=== PATIENT | female | born 1995 | race Caucasian/White ===

== ENCOUNTER 2020-06-03 18:38 | Inpatient (IN) ==
--- OUTSIDE RECORDS SUMMARY | 2020-06-03 18:41 | External Medical Summary | Continuity of Care Document ---
:1995 Author Name Freddy Jeter Address Unavailable Unavailable , Care Team Providers Name Role Phone Ervin Turcios PA-C Unavailable [email or web address] Active medical history not documented Allergies and Adverse Reactions Allergy history not documented Medications Medications not documented Procedures Procedures not documented Immunizations Immunizations not documented Plan of Treatment Planned Observations Planned Goals not documented Results No Known Results Results not documented Encounters Appointment; January Turcios PA-C 23-Dec-2009 8:50 Encounter Diagnosis: Problem not documented
[2020-06-03] MEDS ORDERED: OXYTOCIN 30 UNITS/500 ML BAG IV PRN ×2 (19:49→23:25)
[2020-06-03 20:08] LABS: Hematocrit (blood only) 37.7 % (37-47); Hemoglobin 12.8 g/dL (12.0-16.0); Mean Corpuscular Hemoglobin 25.3 pg (25-34); Mean Corpuscular Volume 74.5 fL (80-100); Mean Platelet Volume 11.1 fL (7.4-10.4); Platelet Count 202 K/uL (130-400); RDW Coefficient of Variation 15.3 % (11.5-14.5); RDW Standard Deviation 41.4 fL (36.4-46.3); Red Blood Count 5.06 M/uL (4.2-5.4); White Blood Count 10.88 K/uL (4.8-10.8)
[2020-06-03] MEDS ORDERED: BUPIVACAINE 0.25% 30 ML VIAL ONE (21:30)
[2020-06-03] MEDS ORDERED: SODIUM CHLORIDE 0.9% INJ 10 ML VIAL ONE (21:30)
[2020-06-03] MEDS ORDERED: ePHEDrine sulfate 50 MG/ML AMP ONE (21:30)
[2020-06-03] MEDS ORDERED: fentaNYL citrate 100 MCG/2 ML VIAL ONE (21:31)
[2020-06-03] MEDS ORDERED: fentaNYL 2MCG/ML ROPIVACAINE 1.25MG/ML 100 ML BAG EPI ONE (21:31)
[2020-06-03] MEDS: LACTATED RINGER'S 1,000 ML IV PRN ×2 (21:46→23:08)
--- NOTE | 2020-06-03 21:46 | History & Physical Report ---
Date of Service June 03, 2020 Assessment & Plan (1) Spontaneous rupture of amniotic membranes: 25 yo at 40.3 wks with SROM, regular contractions, in active labor VS Afebrile FHR reassuring GBS neg Desires epidural for pain Plan to monitor, epidural, expectant management given regular ctxs with cervical change Anticipate (2) Active labor at term: Admission and Anticipated Discharge Date Admission Date: June 03, 2020 History of Present Illness Primary Care Provider: James Carrasco MD Patient is a 25 yo at 40.3 ws, started LOF at 1800 and ctxs at 18:10, got closer and more regular for the last 1 hour No VB Nitrazine and Amnisure tests were +/+ +FM's Her has been uncomplicated except, Obesity, h/o Anxiety ( off Buspar) doing well GBS neg COVID 19 neg Allergies Allergy/AdvReac Type Severity Reaction Status Date / Time No Known Allergies Allergy Unverified 06/03/20 18:59 Home Medications Medication Instructions Recorded Confirmed Type vit-ferrous sulfat-FA 1 tab PO DAILY 06/03/20 06/03/20 History [] Patient History Medical History Anxiety Social History Smoking Status: Never smoker Second Hand Exposure: No; Hx Alcohol Use: No Hx Substance Use: No Preferred Language: Maori Communication Ability: Effective Creative Engagement Director Required: No Beliefs That Will Affect Care: None marital status: Current Living Situation: Spouse Other Information That Helps Us Care for You: No Feels Safe at Home: Yes Safety Concerns: Feels Safe At This Time Assistive Devices: Glasses COUNTER CLERK History No h/o STD's, no h/o HSV/ Chlamydia/ GC Review of Systems All systems reviewed & are unremarkable except as noted in HPI & below Physical Exam Constitutional: WD/WN, vitals as above well developed, well nourished and + in distress (with contractions) Genitourinary: normal external appearance OB Exam Abdomen: + vertex Manual OB Exam: + cervical dilation 4 cm, + cervical effacement 80% and + station -1 OB Exam Monitor Tracing: + external uterine monitor used and + category I Results & Data ([facility]) Vital Signs (Past 12 Hours) Vital Signs Temp Pulse Resp BP 06/03/20 19:03 37.0 C 90 18 130/79 06/03/20 18:50 37.0 C 18 06/03/20 18:47 116 H 130/79 Laboratory Results Lab Results 06/03/20 06/03/20 06/03/20 Range/Units 20:00 20:20 20:20 WBC 10.88 H (4.8-10.8) K/uL RBC 5.06 (4.2-5.4) M/uL Hgb 12.8 (12.0-16.0) g/dL Hct 37.7 (37-47) % MCV 74.5 L (80-100) fL MCH 25.3 (25-34) pg MCHC 34.0 (32-36) g/dL RDW Std Deviation 41.4 (36.4-46.3) fL RDW Coeff of Meghann 15.3 H (11.5-14.5) % Plt Count 202 (130-400) K/uL MPV 11.1 H (7.4-10.4) fL COVID-19 Eval [facility] SARS-CoV-2, RNA, NAAT NEGATIVE (NEGATIVE)
--- NOTE | 2020-06-03 22:08 | Anesthesiology Consultation ---
Date of Service June 03, 2020 Assessment & Plan (1) Encounter for pre-operative examination: Chart Review Chart Review: Patient NOT seen in Pre Admission Testing and Acceptable Risk for Labor Epidural Consults Requested none ASA ASA2 Proposed Anesthesia Anesthesia Type: Labor Epidural Risk / Benefits Reviewed With: PT / POA / Parent / Guardian, Accepts Plan and Informed Consent Obtained History Height/Weight Height: 5 ft 5 in Weight: 99.337 kg Allergies Allergy/AdvReac Type Severity Reaction Status Date / Time No Known Allergies Allergy Unverified 06/03/20 18:59 Medications Home Medications Medication Instructions Recorded Confirmed Last Taken vit-ferrous sulfat-FA 1 tab PO DAILY 06/03/20 06/03/20 06/02/20 19:00 [] Active Medications Generic Name Dose Route Start Last Admin Trade Name Freq PRN Reason Stop Dose Admin Lactated Ringer's 1,000 mls @ 150 mls/hr 06/03/20 19:49 06/03/20 21:46 Lr IV 06/05/20 19:48 999 mls/hr .[id number] PRN Administration L&D Protocol Protocol NPO Date Last Intake of Fluids: 06/03/20 Time Last Intake of Fluids: 22:05 Date Last Intake of Solids: 06/03/20 Time Last Intake of Solids: 16:00 Past Medical History Medical History Anxiety Exercise / Class Metabolic Activity II 4-5 Yardwork/Stairs/Walk up hill Past Surgical History Surgical History No pertinent past surgical history Past Anesthesia History No Family Hx of Anesthesia Complications History of PONV No Hx of Motion Sickness Social History Smoking Status: Never smoker Hx Alcohol Use: No Hx Substance Use: No substance use type: does not use Review of Systems Negative for chest pain or shortness of breath. Patient denies history of abnormal bleeding or bleeding disorder. Patient denies active use of anticoagulants other than low dose aspirin. Patient denies numbness, tingling or weakness in lower extremities. Physical Exam Vital Signs Last Vital Signs Temp 36.9 C 06/03/20 21:15 Pulse 91 H 06/03/20 22:02 Resp 18 06/03/20 19:03 BP 130/79 06/03/20 19:03 Pulse Ox 100 06/03/20 22:02 Constitutional not obese (gravid) ENMT Mouth: no TMJ abnormality and oral opening not small Neck normal visual inspection; neck extension not limited Respiratory normal respiratory effort Cardiovascular Rate/Rhythm: regular rate and regular rhythm Neurologic moves all extremities Psychiatric Orientation: alert and oriented x 3 Testing Laboratory Results 06/03/20 20:00
[2020-06-03] MEDS ORDERED: diphenhydrAMINE 50 MG/ML VIAL IV PRN (22:41)
[2020-06-03] MEDS ORDERED: fentaNYL 2MCG/ML ROPIVACAINE 1.25MG/ML 100 ML BAG EPI PRN (22:41)
[2020-06-03] MEDS ORDERED: NALOXONE HCL 1 MG in SODIUM CHLORIDE 0.9% 1000ML 1,000 ML IV PRN (22:41)
[2020-06-03] MEDS ORDERED: NALOXONE HCL 0.4 MG/1 ML VIAL/CARP IV PRN (22:41)
[2020-06-03] MEDS ORDERED: ONDANSETRON INJ 2 MG/ML 2 ML VIAL IV PRN (22:41)
[2020-06-03] MEDS ORDERED: ePHEDrine sulfate 50 MG/ML AMP IV PRN (22:41)
--- NOTE | 2020-06-03 23:25 | Obstetrical Progress Note ---
Date of Service June 03, 2020 Assessment & Plan Admission and Anticipated Discharge Date Admission Date: June 03, 2020 Subjective Patient is reevaluated She has received epidural, comfortable now VSS Afebrile FHR categ I VE; 5/ 80%/ -1, bulging bag, AROM'ed, clear fluid [place] ctxs q 2-5 min, palpated moderate Continue to monitor closely Consider Pitocin if no cervical change in 2 hours Results & Data ([facility]) Vital Signs (Past 12 Hours) Vital Signs Temp Pulse Resp BP Pulse Ox 06/03/20 23:17 109 H 99 06/03/20 23:12 120 H 100 06/03/20 23:10 111 H 119/70 06/03/20 23:07 125 H 100 06/03/20 23:06 126 H 123/66 06/03/20 23:02 129 H 100 06/03/20 23:00 123 H 116/64 06/03/20 22:57 126 H 99 06/03/20 22:55 129 H 104/55 L 06/03/20 22:52 132 H 100 06/03/20 22:49 129 H 110/55 L 06/03/20 22:47 140 H 106/60 100 06/03/20 22:45 125 H 18 108/59 L 06/03/20 22:43 130 H 18 106/56 L 06/03/20 22:42 126 H 100 06/03/20 22:41 111 H 16 104/58 L 06/03/20 22:39 117 H 18 93/52 L 06/03/20 22:37 111 H 18 100/59 L 100 06/03/20 22:35 117 H 116/68 06/03/20 22:33 108 H 20 137/71 06/03/20 22:32 105 H 100 06/03/20 22:30 91 H 18 130/78 06/03/20 22:27 89 100 06/03/20 22:22 86 100 06/03/20 22:17 90 100 06/03/20 22:12 102 H 100 06/03/20 22:07 95 H 100 06/03/20 22:02 91 H 100 06/03/20 21:57 105 H 100 06/03/20 21:52 99 H 100 06/03/20 21:15 36.9 C 06/03/20 19:03 37.0 C 90 18 130/79 06/03/20 18:50 37.0 C 18 06/03/20 18:47 116 H 130/79
[2020-06-04] MEDS ORDERED: LIDOCAINE HCL 1% 20 ML VIAL ONE (03:43)
[2020-06-04] MEDS ORDERED: bisacodyL 10 MG SUPP PR PRN (04:00)
[2020-06-04] MEDS ORDERED: ACETAMINOPHEN 325 MG TAB PO PRN (04:00)
[2020-06-04] MEDS ORDERED: DIPHTHERIA/TETANUS/PERTUSSIS 0.5 ML SYR/VIAL IM ONE (04:00)
[2020-06-04] MEDS ORDERED: BENZOCAINE 20% AER SPR 82.5 GM CAN EXT PRN (04:00)
[2020-06-04] MEDS ORDERED: SUPERCREAM 0.870% 15 GM JAR EXT PRN (04:00)
[2020-06-04] MEDS ORDERED: OXYTOCIN 30 UNITS/500 ML BAG IV PRN (04:00)
[2020-06-04] MEDS ORDERED: HYDROCORTISONE ACETATE 25 MG SUPP PR PRN (04:00)
[2020-06-04] MEDS ORDERED: MEASLES, MUMPS & RUBELLA VIRUS VIAL SQ ONE (04:00)
--- NOTE | 2020-06-04 04:27 | Anesthesia Procedure Note ---
Date of Service June 04, 2020 Anesthesia Post Epidural Note Vital Signs Vital Signs: Temp Pulse Resp BP Pulse Ox 36.7 C 94 H 20 126/70 99 06/04/20 03:00 06/04/20 04:23 06/04/20 03:29 06/04/20 04:23 06/04/20 03:52 Notes Mental Status: alert / awake / arousable and participated in evaluation Nausea / Vomiting: adequately controlled Pain: adequately controlled Airway Patency, RR, SpO2: stable & adequate BP & HR: stable & adequate Hydration State: stable & adequate Neuraxial Anesthesia: was administered and sensory block is resolving Anesthetic Complications: no major complications apparent and Pt Satisfied with anesthetic care Epidural: Removed without complications and With tip intact Notes: Epidural site clean, dry and intact. No signs of edema, erythema or bruising at insertion site. Pt instructed to request anesthesia if she has residual lower extremity numbness or if she develops lower extremity pain or weakness, back pain or headache.
--- NOTE | 2020-06-04 07:42 | Delivery Summary ---
DATE OF OPERATION: 06/04/2020 TIME OF DELIVERY OF BABY: 3:29 a.m. DETAILS OF DELIVERY: The patient was found to be fully dilated and desired to push. She pushed for about 45 minutes and delivered the head and then turtle sign was noted over the perineum. The anterior, which was the right shoulder, was found to be stuck behind symphysis pubis. Nursing team was notified. The patient's bed was lowered all the way down. With Mia maneuver and suprapubic pressure, I was able to go in to the pelvis and deliver the posterior/ left shoulder and arm without difficulty and then anterior shoulder came right after. Baby was completely delivered within less than a aminute. Baby was handed to the mother where mouth and nose were suctioned. Cord was clamped x2 and cut. Baby was handed off to the pediatric team. Baby was vigorously crying and moving. Then cord blood was obtained. Perineum and vagina were checked for lacerations. There was a small second-degree laceration at the posterior fourchette at 6 o'clock on the hymen, which was small, but was second degree. Rectal exam was done. Excellent sphincter tone was noted. Gloves were changed and this was repaired with 2-0 Vicryl in a running locked fashion bringing the vaginal mucosal and muscles together, skin in a subcuticular fashion and then it was hemostatic. The placenta was found to be in the vagina, delivered spontaneously as intact and complete. Uterus was explored, cleared of all clots and debris. Fundus was firm. The vagina and perineum were checked again. There was a small oozing at the hymen at 3 o'clock position. It was repaired with 3-0 Vicryl on an SH needle with [id number] stitches x2 and it was hemostatic. Rest of the vagina was intact and hemostatic. EBL was 100 mL. Mom and baby tolerated the procedure well. Sponge, lap, needle count was correct x3. Baby was a viable female , Apgars 8/9. No complications happened. I was present during whole procedure. I attest to the content of the Intraoperative Record and any orders documented therein. Any exceptions are noted below. RAFAELAD
[2020-06-04] MEDS: PRENATAL VITAMIN 1 TAB PO SCH (08:27)
[2020-06-04] MEDS: FERROUS SULFATE 325 MG TAB PO SCH (08:27)
[2020-06-04] MEDS: DOCUSATE SODIUM 100 MG CAP PO SCH ×2 (08:27→21:00)
[2020-06-04] MEDS: IBUPROFEN 600 MG TAB PO PRN ×2 (12:35→18:20)
[2020-06-05] MEDS: IBUPROFEN 600 MG TAB PO PRN ×2 (00:35→12:29)
[2020-06-05 06:17] LABS: Hemoglobin 11.7 g/dL (12.0-16.0); Mean Corpuscular Hemoglobin 24.9 pg (25-34); Mean Corpuscular Hgb Conc 32.5 g/dL (32-36); Mean Corpuscular Volume 76.6 fL (80-100); Mean Platelet Volume 10.7 fL (7.4-10.4); Platelet Count 173 K/uL (130-400); RDW Coefficient of Variation 15.7 % (11.5-14.5); RDW Standard Deviation 43.4 fL (36.4-46.3); White Blood Count 12.61 K/uL (4.8-10.8)
[2020-06-05] MEDS: PRENATAL VITAMIN 1 TAB PO SCH (08:26)
[2020-06-05] MEDS: FERROUS SULFATE 325 MG TAB PO SCH (08:26)
[2020-06-05] MEDS: DOCUSATE SODIUM 100 MG CAP PO SCH (08:26)
--- NOTE | 2020-06-05 09:06 | Obstetrical Progress Note ---
Date of Service June 05, 2020 Assessment & Plan Admission and Anticipated Discharge Date Admission Date: June 03, 2020 Subjective PPD#1 doing well passing gas tolerating diet oob Physical Exam Constitutional: WD/WN, vitals as above well developed and comfortable fundus firm abdomen soft and non-tender no edema neg Uyen's for d/c today Results & Data ([facility]) Vital Signs (Past 12 Hours) Vital Signs Temp Pulse Resp BP Pulse Ox 06/05/20 08:30 36.6 C 79 18 116/79 06/05/20 04:30 36.6 C 88 17 97/64 L 98 06/04/20 23:15 36.7 C 80 16 103/69 98 Laboratory Results 06/03/20 06/03/20 06/03/20 20:00 20:20 20:20 WBC 10.88 H RBC 5.06 Hgb 12.8 Hct 37.7 MCV 74.5 L MCH 25.3 MCHC 34.0 RDW Std Deviation 41.4 RDW Coeff of Meghann 15.3 H Plt Count 202 MPV 11.1 H Amniotic Protein COVID-19 Eval [facility] SARS-CoV-2, RNA, NAAT NEGATIVE 06/03/20 06/05/20 20:49 05:20 WBC 12.61 H RBC 4.70 Hgb 11.7 L Hct 36.0 L MCV 76.6 L MCH 24.9 L MCHC 32.5 RDW Std Deviation 43.4 RDW Coeff of Meghann 15.7 H Plt Count 173 MPV 10.7 H Amniotic Protein POS COVID-19 Eval Order SARS-CoV-2, RNA, NAAT
[2020-06-05] MEDS ORDERED: bisacodyL 5 MG TABEC PO SCH (20:00)
== END 2020-06-05 13:20 | disposition home or self-care (01) | DRG 807 ==
LOC: OPB 18:38 → 4S1 18:39 → 4N 06-04 06:36 → EDSTATUS 06-04 18:37

== ENCOUNTER 2023-04-16 22:04 | Inpatient (IN) ==
--- OUTSIDE RECORDS SUMMARY | 2023-04-16 22:11 | External Medical Summary | Summary of Care ---
Author Name Unknown Organization [facility] Address [address] [place] [address] Phone [phone] Care Team Providers Care Photo Lab Manager Name Role Phone James Carrasco MD Primary Care Provider Reason for Visit * Reason Comments Return Visit Encounter Details Date Type Department Care Team (Late st Contact Info) Description 02/11/2023 9:00 AM EST Office Visit Gynecology/Obstetric s [facility] [address] [place] [address] Mis Quevedo PA-C [address] [place] [id number] Normal in third trimester*; Obesity in , antepartum; Rubella non-immune status, antepartum Allergies No known active allergiesdocumented as of this encounter (statuses as of 02/11/2023) Medications Medication Sig Dispensed Refills Start Date End Date Status Fexofenadine HCl 180 MG Oral Tablet (Nessa) Take 1 Tablet by mouth daily as needed for Allergies. 30 Tablet 11 07/30/2021 Active Complete Oral Capsule Therapy Pack Take by mouth. 0 Active documented as of this encounter (statuses as of 02/11/2023) Active Problems Problem Noted Date Diagnosed Date Rubella non-immune status, antepartum 09/08/2022 Normal 09/07/2022 Obesity in , antepartum 09/07/2022 Overview: Class 1; normal early GTT BMI 32.0-32.9,adult 08/26/2021 Overview: 193 Anxiety 10/15/2019 Overview: Buspar prn, stopped ADVANCE DIRECTIVE INFORMATION 03/07/2006 Overview: Not applicable (under age of 18) Estimated Date of Delivery Comme nts Yes 04/18/2023 Based on last me nstrual period of 07/12/2022 documented as of this encounter (statuses as of 02/11/2023) Resolved Problems Problem Noted Date Diagnosed Date Resolved Date Rubella non-immune status, antepartum 01/21/2020 06/23/2020 , normal first 11/26/2019 05/0 04/2020 Obesity in , antepartum 10/15/2019 06/23/2020 Overview: BMI: 33.18 kg/m at NOB 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 Acne vulgaris 05/22/2018 documented as of this encounter (statuses as of 02/11/2023) Immunizations Name Administration Dates Next Due COVID-19 mRNA, LNP-s, No Pre serve, 2-Dose Series (Emprivo) 02/24/2021,01/20/2021 COVID-19, LNP-s, No Preserve , Mariano-sucrose, Ages 12+ (Emprivo) 09/15/2021 H1N1 2009 Influenza, IM 12/22/2008 HPV Vaccine, 4-Valent 10/03/2006,05/30/2006,03/24 Hep A - Hepatitis A (ped/ado le, 1-18 Yrs) 03/04/2006,08/23/2005 Meningococcal Conjugate Vacc ine (Menactra/Menveo) 09/20/2013,03/18/2008 PPD 09/20/2018,02/22/2017,07/02/2015 Seasonal Influenza, PF, 6 M & above, IM , (FluLaval or Fluzone) 11/05/2022,01/21/2020,12/19/2018,02/24 Seasonal Influenza, Quadriva lent, No Preserve, IM 11/21/2017 TDAP (age 10 and older)(Boostrix) 01/28/2023,,02/19/2015 TDAP (age 11 and older)(Adacel) 03/04/2006 Varicella Vaccine (Chicken Pox) 03/18/2008 documented as of this encounter Social History Tobacco Use Types Packs/Day Years Used Date Smoking Tobacco: Never Smokeless Tobacco: Never Alcohol Use Standard Drinks/Week Comments No 0 (1 standard drink = 0.6 oz pur e alcohol) PHQ-2 Answer Date Recorded PHQ-2 Score 0 05/10/2018 Hunger Vital Sign Answer Date Recorded Within the past 12 months, y ou worried that your food would run out before you got the money to buy more. Never true 09/08/19 23 Within the past 12 months, t he food you bought just didn't last and you didn't have money to get more. Never true 09/07/2022 Kerrick Depression Scale Answer Date Recorded Kerrick Depression Scale Total 0 01/28/2023 The thought of harming myself has occurred to me . Never 01/28/2023 Estimated Date of Delivery Comme nts Yes 04/18/2023 Based on last me nstrual period of 07/12/2022 Sex and Gender Information Value Date Recorded Sex Assigned at Female 09/07/2022 9:26 AM EDT Gender Identity Female 09/07/2022 9:26 AM EDT Sexual Orientation Straight 09/07/2022 9: 26 AM EDT Job Start Date Occupation Industry Not on file Not on file Not on file documented as of this encounter Last Filed Vital Signs Vital Sign Reading Time Taken Comments Blood Pressure 112/74 02/11/2023 9:01 AM EST Pulse - - Temperature - - Respiratory Rate - - Oxygen Saturation - - Inhaled Oxygen Concentration - - Weight 92.1 kg (203 lb) 02/11/2023 9:01 AM EST Height 165.1 cm (5' 5") 02/11/2023 9:01 AM EST Body Mass Index 33.78 02/11/2023 9:01 AM EST documented in this encounter Progress Notes * Mis Quevedo PA-C - 02/11/2023 9:21 AM EST 30w4d Doing well, without complaints. Denies bleeding, leaking, contractions. Pos FM. Passed glucola. RTC in 2 weeks Mis Quevedo PA-C documented in this encounter Nursing Notes * Yajaira Tirado LPN - 02/11/2023 9:09 AM EST 30w4d Denies concerns. documented in this encounter Plan of Treatment Upcoming Encounters Date Type Department Care Team (Late st Contact Info) Description 02/25/2023 4:00 PM EST Office Visit Gynecology/Obstetrics [facility] [place] [address] [place], [place] [address] Jasmin Montiel, [address] [address] 03/11/2023 4:30 PM EST Office Visit Gynecology/Obstetrics [facility] [place] [address] [place] [address] Mis Quevedo PA-C [address] [place] [address] 03/25/2023 4:30 PM EST Office Visit Gynecology/Obstetrics [facility] [address] [place] [address] Mis Quevedo PA-C [address] [place] [address] 04/01/2023 4:30 PM EST Office Visit Gynecology/Obst[facility]s [facility] [address] [place] [address] Mis Quevedo PA-C [address] [place] [address] 04/05/2023 3:00 PM EST Office Visit Gynecology/Obstetrics [facility] [address] [place] [address] Clinton Galo MD [address] [place] [address] 04/13/2023 3:15 PM EST Office Visit Gynecology/Obstetrics [facility] [address] [place] [address] Tameka Odom CRNP [address] [place] [address] 04/18/2023 7:45 AM EST Office Visit Gynecology/Obstetrics [facility] [address] [place] [address] Mis Quevedo PA-C [address] [place] [address] Health Maintenance Due Date Last Done Comments Depression Screening 05/11/2019 05/10/2018 COVID-19 Vaccine ( season) 2022 09/15/2021, 02/24/2021, 01/20/2021 Pap Smear 05/12/2025 05/12/2022, 09/22, 04/29/2017 DTaP,Tdap,and Td Vaccines (10 - Td or Tdap) 01/28/2033 01/28/2023, 03/10/2020, 02/19/2015, Additional history exists Hepatitis B Completed 1995, 01/22, 1995 GARDASIL-HPV IMMUNIZATION SERIES Completed 10/03/2006, 05/30/2006, 04/04/2006 MENINGOCOCCAL (MENACTRA/MENVEO) Completed 09/20/2013, 03/18/2008 Gonorrhea / Chlamydia Screen Discontinued 09/07/2022, 10/15/2019, 09/15/2018, Additional history exists Influenza Vaccine (FLU shot) Completed 11/05/2022, 01/21/2020, 12/19/2018, Additional history exists Pneumococcal Vaccine: Pediatrics (0 to 5 Years) and At-Risk Patients (6 to 64 Years) Aged Out No longer eligible based on patient's age to complete this topic documented as of this encounter Medical Devices Not on filedocumented as of this encounter Visit Diagnoses Diagnosis Normal in third trimester- Primary Obesity in , antepartum Obesity complicating , childbirth, or the puerperium, antepartum condition or complication Rubella non-immune status, antepartum Other specified complication, antepartum documented in this encounter Care Teams Photo Lab Manager Relationship Specialty Start Date End Date James Carrasco MD [address] [place] [address] [place] [address] PCP - General 04/04/00 documented as of this encounter
--- OUTSIDE RECORDS SUMMARY | 2023-04-16 22:11 | External Medical Summary ---
Author Name Unknown Address Unknown Organization K01:[facility] [place] [address] [facility] [id number] Laboratory Report Ordering Provider Test Date Status DEMOND EMANUEL 01/28/2023 08:35:36 Final Observation Date Value Abnormality Reference (Units ) Status Retic, % (auto) 01/28/2023 08:35:36 1.81 0.80-1.90 (%) Final Reticulocytes, Absolute 01/28/2023 08:35:36 84.5 31.3-100.1 (K/uL) Final Reticulocyte fraction, immature 01/28/2023 08:35:36 23.1 Above high normal 2.5-20.6 (%) Final Reticulocyte HGB 01/28/2023 08:35:36 27.8 Below low normal 29.7-37.4 (pg) Final Performing Location [facility] [place] [address] [facility] [id number]
--- OUTSIDE RECORDS SUMMARY | 2023-04-16 22:11 | External Medical Summary | Summary of Care ---
Author Name Unknown Organization [facility] Address [address] [place] [address] Phone [phone] Care Team Providers Care Fertilizer Mixer Name Role Phone James Carrasco MD Primary Care Provider Reason for Visit * Reason Comments Return Visit Encounter Details Date Type Department Care Team (Late st Contact Info) Description 04/01/2023 4:30 PM EST Office Visit Gynecology/Obstetric s [facility] [address] [place] [address] Mis Quevedo PA-C [address] [place] [address] Normal in third trimester*; Obesity in , antepartum; Rubella non-immune status, antepartum Allergies No known active allergiesdocumented as of this encounter (statuses as of 04/01/2023) Medications Medication Sig Dispensed Refills Start Date End Date Status Fexofenadine HCl 180 MG Oral Tablet (Nessa) Take 1 Tablet by mouth daily as needed for Allergies. 30 Tablet 11 07/30/2021 Active Complete Oral Capsule Therapy Pack Take by mouth. 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 Acne vulgaris 05/22/2018 documented as of this encounter (statuses as of 04/01/2023) Immunizations Name Administration Dates Next Due COVID-19 mRNA, LNP-s, No Pre serve, 2-Dose Series (Real Time Tomography) 02/24/2021,01/20/2021 COVID-19, LNP-s, No Preserve , Mariano-sucrose, Ages 12+ (Real Time Tomography) 09/15/2021 H1N1 2009 Influenza, IM 12/22/2008 HPV Vaccine, 4-Valent 10/03/2006,05/30/2006,03/24 Hep A - Hepatitis A (ped/ado le, 1-18 Yrs) 03/04/2006,08/23/2005 Meningococcal Conjugate Vacc ine (Menactra/Menveo) 09/20/2013,03/18/2008 PPD 09/20/2018,02/22/2017,07/02/2015 RSV Vac., Bivalent, Perfusio n F, Pf,0.5 Ml (Abrysvo) 03/11/2023 Seasonal Influenza, PF, 6 M & above, [...] money to get more. Never true 09/07/2022 [place] Depression Scale Answer Date Recorded [place] Depression Scale Total 0 03/25/2023 The thought of harming myself has occurred to me . Never 03/25/2023 Estimated Date of Delivery Comme nts Yes [...] Sign Reading Time Taken Comments Blood Pressure 110/70 04/01/2023 4:15 PM EST Pulse - - Temperature - - Respiratory Rate - - Oxygen Saturation - - Inhaled Oxygen Concentration - - Weight 97.1 kg (214 lb) 04/01/2023 4:15 PM EST Height 165.1 cm (5' 5") 04/01/2023 4:15 PM EST Body Mass Index 35.61 04/01/2023 4:15 PM EST documented in this encounter Progress Notes * Mis Quevedo PA-C - 04/01/2023 4:30 PM EST 37w4d Doing well. Denies LOF, VB. Intermittent contractions, no timing or regularity. Good FM. GBS negative. Wishes to schedule post date IOL. Asking for 04/20/2023 if available. Scheduled and given instructions. RTC in 1 week Mis Quevedo PA-C documented in this encounter Nursing Notes * Yajaira Tirado LPN - 04/01/2023 4:20 PM EST 37w4d Denies concerns documented in this encounter Plan of Treatment Upcoming Encounters Date Type Department Care Team (Late st Contact Info) Description 04/05/2023 3:00 PM EST Office Visit Gynecology/Obstetrics [facility] [address] [place] [address] Clinton Galo MD [address] [place] [address] 04/13/2023 3:15 PM EST Office Visit Gynecology/Obstetrics [facility] [address] [place] [address] Tameka Odom CRNP [address] [place] [address] 04/18/2023 7:45 AM EST Office Visit Gynecology/Obst[facility]s [facility] [address] [place] [address] Mis Quevedo PA-C [address] [place] [address] Health Maintenance Due Date Last Done Comments [...] antepartum documented in this encounter Care Teams Fertilizer Mixer Relationship Specialty Start Date End Date James Carrasco MD [address] [place] [address] [place] [address] PCP - General 04/04/00 documented as of this encounter
--- OUTSIDE RECORDS SUMMARY | 2023-04-16 22:11 | External Medical Summary ---
Author Name Unknown Address Unknown Organization [id number]:[facility] [place] [facility] [address] [place] [address] Laboratory Report Ordering Provider Test Date Status JENAEDEMOND CHOWDHURY 01/28/2023 08:35:36 Final Observation Date Value Abnormality Reference (Units ) Status Creatinine 01/28/2023 08:35:36 0.4 Below low normal 0.5-1.0 (mg/dL) Final Glomerular filtration rate/1.73 sq M.predicted [Volume Rate/Area] in Serum, Plasma or Blood by Creatinine-based formula (CKD-EPI) 01/28/2023 08:35:36 >90 >=60 (mL/min) Final eGFR is calculated based on the CKD-EPI 2020 equation Performing Location [facility] [place] [address] [place] [address]
--- OUTSIDE RECORDS SUMMARY | 2023-04-16 22:11 | External Medical Summary ---
Author Name Unknown Address Unknown Organization [id number]:LAB[facility]ATORY [facility] [place] [address] [place] [address] Laboratory Report Ordering Provider Test Date Status DEMOND EMANUEL 01/28/2023 08:35:36 Final Observation Date Value Abnormality Reference (Units ) Status Glucose [Moles/volume] in Serum or Plasma --1 hour post 50 g glucose PO 01/28/2023 08:35:36 100 70-129 (mg/dL) Final Performing Location [facility]ORY [facility] [place] [address] [place] [address]
--- OUTSIDE RECORDS SUMMARY | 2023-04-16 22:11 | External Medical Summary | Summary of Care ---
Author Name Unknown Organization [facility] Address [address] [place] [address] Phone [phone] Care Team Providers Care Plating Operator Name Role Phone James Carrasco MD Primary Care Provider [phone] Reason for Visit * Reason Onset Date Comments Forms Request 02/11/2023 Encounter Details Date Type Department Care Team (Late st Contact Info) Description 02/11/2023 Telephone Gynecology/Obstetrics [facility] [address] [place] [address] Mis Quevedo PA-C [address] [place] [address] Forms Request Allergies No known active allergiesdocumented as of this encounter (statuses as of 02/17/2023) Medications Medication Sig Dispensed Refills Start Date End Date Status Fexofenadine HCl 180 MG Oral Tablet (Nessa) Take 1 Tablet by mouth daily as needed for Allergies. 30 Tablet 11 07/30/2021 Active Complete Oral Capsule Therapy Pack Take by mouth. 0 Active documented as of this encounter (statuses as of 02/17/2023) Active Problems Problem Noted Date Diagnosed Date Rubella non-immune status, antepartum 09/08/2022 Normal 09/07/2022 Obesity in , antepartum 09/07/2022 Overview: Class 1; normal early GTT BMI 32.0-32.9,adult 08/26/2021 Overview: 193 Anxiety 10/15/2019 Overview: Keven prn, stopped ADVANCE DIRECTIVE INFORMATION 03/07/2006 Overview: Not applicable (under age of 18) Estimated Date of Delivery Comme nts Yes 04/18/2023 Based on last me nstrual period of 07/12/2022 documented as of this encounter (statuses as of 02/17/2023) Resolved Problems Problem Noted Date Diagnosed Date Resolved Date Rubella non-immune status, antepartum 01/21/2020 06/23/2020 , normal first 11/26/2019 0504/2020 Obesity in , antepartum 10/15/2019 06/23/2020 Overview: BMI: 33.18 kg/m at NOB 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 Acne vulgaris 05/22/2018 documented as of this encounter (statuses as of 02/17/2023) Immunizations Name Administration Dates Next Due COVID-19 mRNA, LNP-s, No Pre serve, 2-Dose Series (Pfizer) 02/24/2021,01/20/2021 COVID-19, LNP-s, No Preserve , Mariano-sucrose, Ages 12+ (Pfizer) 09/15/2021 DTP/HIB (Tetramune) 1995,1995,1995 DTaP Dipth/Tet/Acell Pertussis (Infanrix), Peds 12/01/2000,07/20/1996 H1N1 2009 Influenza, IM 12/22/2008 HIB PRP-OMP, 3 dose (Pedvax) 07/20/1996 HPV Vaccine, 4-Valent 10/03/2006,05/30/2006,03/24 Hep A - Hepatitis A (ped/ado le, 1-18 Yrs) 03/04/2006,08/23/2005 Hepatitis B, 0-19 yrs 1995,1995,12/23 MMR - Measles/Mumps/Rubella Vaccine 01/04/2000,0 04/20/1996 Meningococcal Conjugate Vacc ine (Menactra/Menveo) 09/20/2013,03/18/2008 OPV - Polio Virus Vaccine (Oral) 996,1995,1995,03/18 PPD 09/20/2018,02/22/2017,07/02/2015 Seasonal Influenza, PF, 6 M & above, IM , (FluLaval or Fluzone) 11/05/2022,01/21/2020,12/19/2018,02/24 Seasonal Influenza, Quadriva lent, No Preserve, IM 11/21/2017 TDAP (age 10 and older)(Boostrix) 01/28/2023,,02/19/2015 TDAP (age 11 and older)(Adacel) 03/04/2006 Varicella Vaccine (Chicken Pox) 03/18/2008,07/20 documented as of this encounter Social History [...] money to get more. Never true 09/07/2022 [place] Depression Scale Answer Date Recorded [place] Depression Scale Total 0 01/28/2023 The thought [...] on file documented as of this encounter Miscellaneous Notes * Telephone Encounter - Yajaira Tirado LPN - 02/17/2023 4:10 PM EST Copies in scan bin. Originals in triage. Faxed per patients request. * Telephone Encounter - Yajaira Tirado LPN - 02/11/2023 11:59 AM EST Forms complete and on Mis Roach's desk for signature. * Telephone Encounter - Yajaira Tirado LPN - 02/11/2023 11:12 AM EST FMLA forms received 02/11/2023 Would pt like forms faxed yes to [phone] Does pt need notified when done? no Patient Phone Numbers documented in this encounter Plan of Treatment Upcoming Encounters Date Type Department Care Team (Late st Contact Info) Description 02/25/2023 4:00 PM EST [facility] [address] [facility] [place] [address] Jasmin Montiel, [address] [place] [address] 03/11/2023 4:30 PM EST Office Visit Gynecology/Obstetrics [facility] [address] [place] [address] Mis Quevedo PA-C [address] [place] [address] 03/25/2023 4:30 PM EST Office Visit Gynecology/Obstetrics [facility] [address] [place] [address] Mis Quevedo PA-C [address] [place] [address] 04/01/2023 4:30 PM EST Office Visit Gynecology/Obstetrics [facility] [address] [place] [address] Mis Quevedo PA-C [address] [place] [address] 04/05/2023 3:00 PM EST Office Visit Gynecology/Obstetrics [facility] [address] [place] [address] Clinton Galo MD [address] [place] [address] 04/13/2023 3:15 PM EST Office Visit Gynecology/Obstetrics [facility] [address] [place] [address] Tameka Odom CRNP [address] [place] [address] 04/18/2023 7:45 AM EST Office Visit Gynecology/Obstetrics [facility] [address] [place] [address] Mis Quevedo PA-C [address] [place] [address] Health Maintenance Due Date Last Done Comments [...] Not on filedocumented as of this encounter Care Teams Plating Operator Relationship Specialty Start Date End Date James Carrasco MD [address] [place] [address] [place] [address] PCP - General 04/04/00 documented as of this encounter
--- OUTSIDE RECORDS SUMMARY | 2023-04-16 22:11 | External Medical Summary ---
Author Name Unknown Address Unknown Organization [id number]:[facility] [place] - [address] [facility] [address] Laboratory Report Ordering Provider Test Date Status DEMOND EMANUEL 01/28/2023 08:35:36 Final Observation Date Value Abnormality Reference (Units ) Status SYNC LEUKOCYTES IN BLOOD BY AUTOMATED COUNT 01/28/2023 08:35:36 8.01 4.00-10.80 (K/uL) Final Segs 01/28/2023 08:35:36 74.7 40.0-75.0 (%) Final Lymphs % 01/28/2023 08:35:36 19.2 18.0-42.0 (%) Final Monos 01/28/2023 08:35:36 4.5 1.0-11.0 (%) Final Eosinophils 01/28/2023 08:35:36 0.6 0.0-6.0 (%) Final Basos 01/28/2023 08:35:36 0.5 0.0-2.0 (%) Final Immature Granulocyte, Percent 01/28/2023 08:35:36 0.5 0.0-2.0 (%) Final Absolute Segs 01/28/2023 08:35:36 5.98 1.80-7.70 (K/uL) Final Lymphs, absolute 01/28/2023 08:35:36 1.54 1.00-4.80 (K/ul) Final Monos, Abs 01/28/2023 08:35:36 0.36 0.00-1.10 (K/uL) Final Eos, Abs 01/28/2023 08:35:36 0.05 0.00-0.70 (K/uL) Final Basos, Abs 01/28/2023 08:35:36 0.04 0.00-0.20 (K/uL) Final Immature Granulocytes, Number 01/28/2023 08:35:36 0.04 0.00-0.20 (K/uL) Final Performing Location [facility] [place] - [address] [facility] [address]
--- OUTSIDE RECORDS SUMMARY | 2023-04-16 22:11 | External Medical Summary ---
Author Name Unknown Address Unknown Organization [id number]:[facility] [place] [address] [facility] [address] Laboratory Report Ordering Provider Test Date Status ALEXIA ORTEGA 03/25/2023 16:50:13 Final Observation Date Value Abnormality Reference (Units ) Status Streptococcus agalactiae DNA [Presence] in Specimen by IRENE with probe detection 03/25/2023 16:50:13 Negative Negative Final No Group B Streptococcus det ected by culture-enhanced PCR (amplified probe).
The collection of vaginal/rectal swab specimen combinations (FDA approved specimen type) is optimal for the detection of Group B Streptococcus. Single source collection (vaginal only or rectal only) or alternate specimen sources may lead to false negative results. Performing Location [facility] [place] [address] [facility] [address]
--- OUTSIDE RECORDS SUMMARY | 2023-04-16 22:11 | External Medical Summary | Summary of Care ---
Author Name Unknown Organization [facility] Address [address] [place] [address] Phone [phone] Care Team Providers Care Rn Procedures Name Role Phone James Carrasco MD Primary Care Provider Reason for Visit * Reason Comments Return Visit Encounter Details Date Type Department Care Team (Late st Contact Info) Description 04/13/2023 3:15 PM EST Office Visit [facility]necology[facility]Obstetric s [facility] [address] [place] [address] Tameka Odom CRNP [address] [facility] [place] [address] Normal in third trimester*; Obesity in , antepartum; Rubella non-immune status, antepartum Allergies No known active allergiesdocumented as of this encounter (statuses as of 04/13/2023) Medications Medication Sig Dispensed Refills Start Date End Date Status Fexofenadine HCl 180 MG Oral Tablet (Nessa) Take 1 Tablet by mouth daily as needed for Allergies. 30 Tablet 11 07/30/2021 Active Complete Oral Capsule Therapy Pack Take by mouth. 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 Never true 09/07/2022 [place] Depression Scale Answer Date Recorded [place] Depression Scale Total 0 03/25/2023 The thought [...] Sign Reading Time Taken Comments Blood Pressure 110/64 04/13/2023 3:18 PM EST Pulse - - Temperature - - Respiratory Rate - - Oxygen Saturation - - Inhaled Oxygen Concentration - - Weight 98.4 kg (217 lb) 04/13/2023 3:18 PM EST Height 165.1 cm (5' 5") 04/13/2023 3:18 PM EST Body Mass Index 36.11 04/13/2023 3:18 PM EST documented in this encounter Progress Notes * Tameka Odom CRNP - 04/13/2023 3:52 PM EST 39w2d No concerns. Some aches and pains of . Baby is active. Denies contractions, bleeding, LOF. IOL 04/20. PETR Riley * Maureen Jarvis LPN - 04/13/2023 3:18 PM EST 39w2d Denies any concerns documented in this encounter Plan of Treatment Upcoming Encounters Date Type Department Care Team (Late st Contact Info) Description 04/18/2023 7:45 AM EST Office Visit Gynecology/Obstetrics [facility] [address] [place] [address] Mis Quevedo PA-C [address] [place] [address] Health Maintenance Due Date Last Done Comments [...] antepartum documented in this encounter Care Teams Rn Procedures Relationship Specialty Start Date End Date James Carrasco MD [address] [place] [address] [place] [phone] PCP - General 04/04/00 documented as of this encounter
--- OUTSIDE RECORDS SUMMARY | 2023-04-16 22:11 | External Medical Summary | Summary of Care ---
Author Name Unknown Organization [facility] Address [address] [place] [address] Phone [phone] Care Team Providers Care Biomedical Analytical Scientist Name Role Phone James Carrasco MD Primary Care Provider Reason for Visit * Reason Comments Return Visit Encounter Details Date Type Department Care Team (Late st Contact Info) Description 03/25/2023 4:30 PM EST Office Visit Gynecology/Obstetric s [facility] [address] [place] [address] Mis Quevedo PA-C [address] [place] [address] Normal in third trimester*; Obesity in , antepartum; Rubella non-immune status, antepartum Allergies No known active allergiesdocumented as of this encounter (statuses as of 03/25/2023) Medications Medication Sig Dispensed Refills Start Date End Date Status Fexofenadine HCl 180 MG Oral Tablet (Nessa) Take 1 Tablet by mouth daily as needed for Allergies. 30 Tablet 11 07/30/2021 Active Complete Oral Capsule Therapy Pack Take by mouth. 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 Never true 09/07/2022 [place] Depression Scale Answer Date Recorded [place] Depression Scale Total 0 03/25/2023 The thought [...] Sign Reading Time Taken Comments Blood Pressure 106/68 03/25/2023 4:17 PM EST Pulse - - Temperature - - Respiratory Rate - - Oxygen Saturation - - Inhaled Oxygen Concentration - - Weight 96.1 kg (211 lb 12.8 oz) 03/25/2023 4:17 PM EST Height 165.1 cm (5' 5") 03/25/2023 4:17 PM EST Body Mass Index 35.25 03/25/2023 4:17 PM EST documented in this encounter Progress Notes * Mis Quevedo PA-C - 03/25/2023 5:08 PM EST 36w4d Doing well, without complaints. Denies LOF, VB. Pos FM. Occasional BH contractions. Due for GBS, collected. Labor precautions, rtc in 1 week Mis Quevedo PA-C documented in this encounter Nursing Notes * Sowmya Woods RN - 03/25/2023 4:18 PM EST Patient here for SARAH 36w4d No concerns GBS today documented in this encounter Plan of Treatment Upcoming Encounters Date Type Department Care Team (Late st Contact Info) Description 04/01/2023 4:30 PM EST Office Visit Gynecology/Obst[facility]s [facility] [address] [place] [address] Mis Quevedo PA-C [address] [place] [address] 04/05/2023 3:00 PM EST Office Visit Gynecology/Obstetrics [facility] [address] [place] [address] Clinton Galo MD [address] [place] [address] 04/13/2023 3:15 PM EST Office Visit Gynecology/Obstetrics [facility] [address] [place] [address] Tameka Odom CRNP [address] [place] [address] 04/18/2023 7:45 AM EST Office Visit Gynecology/Obstetrics [facility] [address] [place] [address] Mis Quevedo PA-C [address] [place] [address] Pending Results Name Type Priority Associated Diagnoses Date /Time GROUP B STREP CULTURE/PCR Lab Routine Normal in third trimester 03/25/2023 4:50 PM EST Scheduled Orders Name Type Priority Associated Diagnoses Orde r Schedule GROUP B STREP CULTURE/PCR Lab Routine Normal in third trimester Expected: 03/25/2023, Expires: 03/25/2024 Health Maintenance Due Date Last Done Comments [...] antepartum documented in this encounter Care Teams Biomedical Analytical Scientist Relationship Specialty Start Date End Date James Carrasco MD [address] [place] [address] [place] [address] PCP - General 04/04/00 documented as of this encounter
--- OUTSIDE RECORDS SUMMARY | 2023-04-16 22:11 | External Medical Summary | Summary of Care ---
Author Name Unknown Organization [facility] Address [address] [place] [address] Phone [phone] Care Team Providers Care Carpenter Helper Maintenance Name Role Phone James Carrasco MD Primary Care Provider Reason for Visit * Reason Onset Date Comments Forms Request 02/11/2023 Encounter Details Date Type Department Care Team (Late st Contact Info) Description 02/11/2023 Telephone Gynecology/Obstetrics [facility] [address] [place] [address] Mis Quevedo PA-C [address] [place] [address] Forms Request Allergies No known active allergiesdocumented [...] Preserve , Mariano-sucrose, Ages 12+ (Pfizer) 09/15/2021 H1N1 2009 Influenza, IM 12/22/2008 HPV [...] money to get more. Never true 09/07/2022 [place] Depression Scale Answer Date Recorded [place] Depression Scale Total 0 01/28/2023 The thought [...] Would pt like forms faxed yes to [phone] Does pt need notified when done? no Patient Phone Numbers documented in this encounter Plan of Treatment Upcoming Encounters Date Type Department Care Team (Late st Contact Info) Description 02/25/2023 4:00 PM EST Office Visit Gynecology/Obstetrics [facility] [address] [place] [address] Jasmin Montiel, [facility] [address] [facility] [place] [address] 03/11/2023 4:30 PM EST Office Visit Gynecology/Obstetrics [facility] [address] [place] [address] Mis Quevedo PA-C [address] [place] [address] 03/25/2023 4:30 PM EST Office Visit Gynecology/Obstetrics [facility] [address] [place] [address] Mis Quevedo PA-C [address] [place] [address] 04/01/2023 4:30 PM EST Office Visit Gynecology/Obstetrics [facility] [address] [place] [address] Mis Quevedo PA-C [address] [place] [address] 04/05/2023 3:00 PM EST Office Visit Gynecology/Obstetrics [facility] [address] [place] [address] Clinton Galo MD [address] [place] [address] 04/13/2023 3:15 PM EST Office Visit Gynecology/Obstetrics [facility] [address] [place] [address] Tameka Odom CRNP [address] [place] [address] 04/18/2023 7:45 AM EST Office Visit Gynecology/Obstetrics [facility] [address] [place] [address] Mis Quevedo PA-C [address] [place] [address] Health Maintenance Due Date Last Done Comments Depression Screening 05/11/2019 05/10/2018 COVID-19 Vaccine (2022- season) 2022 09/15/2021, 02/24/2021, 01/20/2021 Pap Smear [...] filedocumented as of this encounter Care Teams Carpenter Helper Maintenance Relationship Specialty Start Date End Date James Carrasco MD [address] [place] [address] [place] [address] PCP - General 04/04/00 documented as of this encounter
--- OUTSIDE RECORDS SUMMARY | 2023-04-16 22:11 | External Medical Summary ---
Author Name Unknown Address Unknown Organization K01:LABORATORY [facility] [place] - [address] [address] Laboratory Report Ordering Provider Test Date Status DEMOND EMANUEL 01/28/2023 08:35:36 Final Observation Date Value Abnormality Reference (Units ) Status WBC, Total 01/28/2023 08:35:36 8.01 4.00-10.8 0 (K/uL) Final RBC 01/28/2023 08:35:36 4.71 3.85-5.15 (M/uL) Final Hemoglobin 01/28/2023 08:35:36 11.9 Below low normal 12 .0-15.3 (g/dL) Final Anemia reflex testing trigge rs on a HGB < 12.0 for Females and HGB < 13.0 for Males in accordance with the WHO Anemia Guidelines
Anemia reflex testing triggers on a HGB < 12.0 for Females and HGB < 13.0 for Males in accordance with the WHO Anemia Guidelines HCT 01/28/2023 08:35:36 38.8 36.0-45.2 (%) Final MCV 01/28/2023 08:35:36 82.4 81.5-97.5 (fL) Final MCH 01/28/2023 08:35:36 25.3 27.0-34.0 (pg) Final MCHC 01/28/2023 08:35:36 30.7 32.0-36.0 (g/dL) Final RDW 01/28/2023 08:35:36 14.3 11.5-15.5 (%) Final Platelets 01/28/2023 08:35:36 187 140-400 (K /uL) Final MPV 01/28/2023 08:35:36 11.8 6.6-11.1 ( fL) Final Nucleated erythrocytes/100 leukocytes [Ratio] in Blood by Automated count 01/28/2023 08:35:36 0 <=0 (/100 WBCs) Fi [facility] Performing Location LABORATORY [facility] - [address] [facility] [address]
--- OUTSIDE RECORDS SUMMARY | 2023-04-16 22:11 | External Medical Summary | Summary of Care ---
Author Name Unknown Organization [facility] Address [address] [place] [address] Phone [phone] Care Team Providers Care Batter Depositor Name Role Phone James Carrasco MD Primary Care Provider Reason for Visit * Reason Comments Return Visit Encounter Details Date Type Department Care Team (Late st Contact Info) Description 04/05/2023 3:00 PM EST Office Visit Gynecology/Obstetric s [facility] [address] [place] [address] Clinton Galo MD [address] [place] [address] Normal in third trimester*; Obesity in , antepartum; Rubella non-immune status, antepartum Allergies No known active allergiesdocumented as of this encounter (statuses as of 04/05/2023) Medications Medication Sig Dispensed Refills Start Date End Date Status Fexofenadine HCl 180 MG Oral Tablet (Nessa) Take 1 Tablet by mouth daily as needed for Allergies. 30 Tablet 11 07/30/2021 Active Complete Oral Capsule Therapy Pack Take by mouth. 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 Never true 09/07/2022 [place] Depression Scale Answer Date Recorded [place] Depression Scale Total 0 03/25/2023 The thought [...] Sign Reading Time Taken Comments Blood Pressure 106/64 04/05/2023 3:13 PM EST Pulse - - Temperature - - Respiratory Rate - - Oxygen Saturation - - Inhaled Oxygen Concentration - - Weight 98.4 kg (217 lb) 04/05/2023 3:13 PM EST Height 165.1 cm (5' 5") 04/05/2023 3:13 PM EST Body Mass Index 36.11 04/05/2023 3:13 PM EST documented in this encounter Progress Notes * Clinton Galo MD - 04/05/2023 3:42 PM EST Pt doing well No complaints * Clinton Galo MD - 04/05/2023 3:16 PM EST Pt doing well No complaints RTC 1 week * Maureen Jarvis LPN - 04/05/2023 3:13 PM EST 38w1d Denies any concerns documented in this encounter Plan of Treatment Upcoming Encounters Date Type Department Care Team (Late st Contact Info) Description 04/13/2023 3:15 PM EST Office Visit Gynecology/Obstetrics [facility] [address] [place] [address] Tameka Odom CRNP [address] [place] [address] 04/18/2023 7:45 AM EST Office Visit Gynecology/Obstetrics [facility] [address] [place] [address] Mis Quevedo PA-C [address] [place] [address] Health Maintenance Due Date Last Done Comments [...] antepartum documented in this encounter Care Teams Batter Depositor Relationship Specialty Start Date End Date James Carrasco MD [address] [place] [address] [place] [phone] PCP - General 04/04/00 documented as of this encounter
--- OUTSIDE RECORDS SUMMARY | 2023-04-16 22:11 | External Medical Summary | Summary of Care ---
Author Name Unknown Organization [facility] Address [address] [place] [address] Phone [phone] Care Team Providers Care Election Supervisor Name Role Phone James Carrasco MD Primary Care Provider [phone] Reason for Visit * Reason Comments Return Visit Encounter Details Date Type Department Care Team (Late st Contact Info) Description 02/11/2023 9:00 AM EST Office Visit Gynecology/Obstetric s [facility] [address] [place] [address] Mis Quevedo PA-C [address] [place] [address] Normal in third trimester*; Obesity in , [...] mRNA, LNP-s, No Pre serve, 2-Dose Series ([employer]) 02/24/2021,01/20/2021 COVID-19, LNP-s, No Preserve , Mariano-sucrose, Ages 12+ ([employer]) 09/15/2021 H1N1 2009 Influenza, IM 12/22/2008 HPV [...] money to get more. Never true 09/07/2022 [place] Depression Scale Answer Date Recorded [place] Depression Scale Total 0 01/28/2023 The thought [...] 02/25/2023 4:00 PM EST Office Visit Gynecology/Obstetrics [facility] [address] [place], [place] [address] Jasmin Montiel, [address] [address] 03/11/2023 4:30 PM EST Office Visit Gynecology/Obstetrics [facility] [address] [place] [address] Mis Quevedo PA-C [address] [place] [address] 03/25/2023 4:30 PM EST Office Visit Gynecology/Obstetrics [facility] [address] [place] [address] Mis Quevedo PA-C [address] [place] [address] 04/01/2023 4:30 PM EST Office Visit Gynecology/Obstetrics [facility] [address] [place] [address] Mis Quevedo PA-C [address] [place] [address] 04/05/2023 3:00 PM EST Office Visit Gynecology/Obstetrics [facility] [address] [place] [address] Clinton Galo MD [address] [place] [address] 04/13/2023 3:15 PM EST Office Visit Gynecology/Obstetrics [facility] [address] [place] [address] Tameka Odom CRNP [address] [place] [address] 04/18/2023 7:45 AM EST Office Visit Gynecology/Obstetrics [facility] [address] [place] [address] Mis Quevedo PA-C [address] [place] [address] Health Maintenance Due Date Last Done Comments [...] antepartum documented in this encounter Care Teams Election Supervisor Relationship Specialty Start Date End Date James Carrasco MD [address] [place] [address] [place] [address] PCP - General 04/04/00 documented as of this encounter
--- OUTSIDE RECORDS SUMMARY | 2023-04-16 22:11 | External Medical Summary | Summary of Care ---
Author Name Unknown Organization [facility] Address [address] [place] [address] Phone [phone] Care Team Providers Care Buffing Line Set Up Worker Name Role Phone James Carrasco MD Primary Care Provider Reason for Visit * Reason Comments Return Visit Encounter Details Date Type Department Care Team (Late st Contact Info) Description 03/11/2023 2:30 PM EST Office Visit Gynecology/Obstetric s [facility] [address] [place] [address] Tameka Odom CRNP [address] [facility] [address] Normal in third trimester*; Obesity in , antepartum; Rubella non-immune status, antepartum Allergies No known active allergiesdocumented as of this encounter (statuses as of 03/11/2023) Medications Medication Sig Dispensed Refills Start Date End Date Status Fexofenadine HCl 180 MG Oral Tablet (Nessa) Take 1 Tablet by mouth daily as needed for Allergies. 30 Tablet 11 07/30/2021 Active Complete Oral Capsule Therapy Pack Take by mouth. 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 Never true 09/07/2022 [place] Depression Scale Answer Date Recorded [place] Depression Scale Total 0 01/28/2023 The thought [...] Sign Reading Time Taken Comments Blood Pressure 100/60 03/11/2023 2:18 PM EST Pulse - - Temperature - - Respiratory Rate - - Oxygen Saturation - - Inhaled Oxygen Concentration - - Weight 95.7 kg (211 lb) 03/11/2023 2:18 PM EST Height - - Body Mass Index 35.11 02/25/2023 4:00 PM EST documented in this encounter Progress Notes * Tameka Odom CRNP - 03/11/2023 2:35 PM EST 34w4d No concerns. Feeling well overall. Baby is active. No contractions, bleeding or LOF. RSV vaccine today. PETR Riley * Maureen Jarvis LPN - 03/11/2023 2:18 PM EST 34w4d Denies any issues Would like rsv inj documented in this encounter Plan of Treatment Upcoming Encounters Date Type Department Care Team (Late st Contact Info) Description 03/25/2023 4:30 PM EST Office Visit Gynecology/Obstetrics [facility] [address] [place] [address] Mis Quevedo PA-C [address] [place] [address] 04/01/2023 4:30 PM EST Office Visit Gynecology/Obstetrics [facility] [address] [place] [address] Mis Quevedo PA-C [address] [place] [address] 04/05/2023 3:00 PM EST Office Visit [facility] [address] [place] [address] Clinton Galo MD [address] [place] [address] 04/13/2023 3:15 PM EST Office Visit Gynecology/Obstetrics [facility] [address] [place] [address] Tameka Odom CRNP [address] [place] [address] 04/18/2023 7:45 AM EST Office Visit Gynecology/Obstetrics [facility] [address] [place] [address] Mis Quevedo PA-C [address] [place] [address] Health Maintenance Due Date Last Done Comments [...] antepartum documented in this encounter Care Teams Buffing Line Set Up Worker Relationship Specialty Start Date End Date James Carrasco MD [address] [place] [address] [place] [address] PCP - General 04/04/00 documented as of this encounter
--- OUTSIDE RECORDS SUMMARY | 2023-04-16 22:11 | External Medical Summary | Summary of Care ---
Author Name Unknown Organization [facility] Address [address] [place] [address] Phone [phone] Care Team Providers Care Architectural Engineer Name Role Phone James Carrasco MD Primary Care Provider Reason for Visit * Reason Comments Return Visit Encounter Details Date Type Department Care Team (Late st Contact Info) Description 01/28/2023 7:45 AM EST Office Visit Gynecology/Obstetric s [facility] [address] [place] [address] Mis Quevedo PA-C [address] [place] [address] Normal in third trimester*; Obesity in , antepartum; Rubella non-immune status, antepartum; Need for nfntwxlbhi-yjdpppv-xj rtussis (Tdap) vaccine Allergies No known active allergiesdocumented as of this encounter (statuses as of 01/28/2023) Medications Medication Sig Dispensed Refills Start Date End Date Status Fexofenadine HCl 180 MG Oral Tablet (Nessa) Take 1 Tablet by mouth daily as needed for Allergies. 30 Tablet 11 07/30/2021 Active Complete Oral Capsule Therapy Pack Take by mouth. 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 Acne vulgaris 05/22/2018 documented as of this encounter (statuses as of 01/28/2023) Immunizations Name Administration Dates Next Due COVID-19 mRNA, LNP-s, No Pre serve, 2-Dose Series ([employer]) 02/24/2021,01/20/2021 COVID-19, LNP-s, No Preserve , Mariano-sucrose, Ages 12+ ([employer]) 09/15/2021 H1N1 2009 Influenza, IM 12/22/2008 HPV Vaccine, 4-Valent 10/03/2006,05/30/2006,03/24 Hep A - Hepatitis A (ped/ado le, 1-18 Yrs) 03/04/2006,08/23/2005 Meningococcal Conjugate Vacc ine (Menactra/Menveo) 09/20/2013,03/18/2008 PPD 09/20/2018,02/22/2017,07/02/2015 SEASONAL INFLUENZA, PF, 6 M & Above, IM , (FLULAVAL or FLUZONE) 11/05/2022,01/21/2020,12/19/2018,02/24 Seasonal Influenza, Quadriva lent, No Preserve, [...] money to get more. Never true 09/07/2022 [place] Depression Scale Answer Date Recorded [place] Depression Scale Total 0 01/28/2023 The thought [...] Reading Time Taken Comments Blood Pressure 100/60 01/28/2023 7:32 AM EST Pulse - - Temperature - - Respiratory Rate - - Oxygen Saturation - - Inhaled Oxygen Concentration - - Weight 91.5 kg (201 lb 12.8 oz) 01/28/2023 7:32 AM EST Height 165.1 cm (5' 5") 01/28/2023 7:32 AM EST Body Mass Index 33.58 01/28/2023 7:32 AM EST documented in this encounter Progress Notes * Mis Quevedo PA-C - 01/28/2023 7:44 AM EST 28w4d Doing well. Denies LOF, VB, contractions. Pos fm. Complaints: none Desires TDaP, given. Completing third tri labs including glucola. Reviewed [facility], call <10 movements/2hrs. RTC in 2 weeks Mis Quevedo PA-C * Beba Whitley LPN - 01/28/2023 7:41 AM EST 28w4d Completing 28wk labs today, desires tdap today. Pt denies any concerns. documented in this encounter Plan of Treatment Upcoming Encounters Date Type Department Care Team (Late st Contact Info) Description 02/11/2023 9:00 AM EST Office Visit Gynecology/Obstetrics [facility] [address] [place] [address] Mis Quevedo PA-C [address] [place] [address] 02/25/2023 4:00 PM EST Office Visit Gynecology/[facility]stetrics [facility] [address] [place] [address] Jasmni Montiel, [address] [place] [address] 03/11/2023 4:30 PM EST Office Visit Gynecology/Obstetrics [facility] [address] [place] [address] Mis Quevedo PA-C [address] [place] [address] 03/25/2023 4:30 PM EST Office Visit Gynecology/Obst[facility]s [facility] [address] [place] [address] Mis Quevedo PA-C [address] [place] [address] 04/01/2023 4:30 PM EST Office Visit Gynecology/Obstetrics [facility] [address] [place] [address] Mis Quevedo PA-C [address] [place] [address] 04/05/2023 3:00 PM EST Office Visit Gynecology/Obstetrics [facility] [address] [place] [address] Clinton Galo MD [address] [place] [address] 04/13/2023 3:15 PM EST Office Visit Gynecology/Obstetrics [facility] [address] [place] [address] Tameka Odom CRNP [address] [place] [address] 04/18/2023 7:45 AM EST Office Visit Gynecology/Obstetrics [facility] [address] [place] [address] Mis Quevedo PA-C [address] [place] [address] Health Maintenance Due Date Last Done Comments [...] non-immune status, antepartum Other specified complication, antepartum Need for dxuotazcxt-msuswzp-wblllqtjf (Tdap) vaccine Need for prophylactic vaccination with combined mophmjmicj-rhgnkcs-dgbyehcxe (DTP) vaccine documented in this encounter Care Teams Architectural Engineer Relationship Specialty Start Date End Date James Carrasco MD [address] [place] [address] [place] [address] PCP - General 04/04/00 documented as of this encounter
--- OUTSIDE RECORDS SUMMARY | 2023-04-16 22:11 | External Medical Summary | Summary of Care ---
Author Name Unknown Organization [facility] Address [address] [place] [address] Phone [phone] Care Team Providers Care Sheet Metal Production Worker Name Role Phone James Carrasco MD Primary Care Provider Reason for Visit * Reason Comments Return Visit Encounter Details Date Type Department Care Team (Late st Contact Info) Description 02/25/2023 4:00 PM EST Office Visit Gynecology/Obstetric s [facility] [address] [facility] [place] [address] Jasmin Montiel, [facility] [address] [facility] [place] [phone] Normal in third trimester*; Rubella non-immune status, antepartum; Class 1 obesity Allergies No known active allergiesdocumented as of this encounter (statuses as of 02/25/2023) Medications Medication Sig Dispensed Refills Start Date End Date Status Fexofenadine HCl 180 MG Oral Tablet (Nessa) Take 1 Tablet by mouth daily as needed for Allergies. 30 Tablet 11 07/30/2021 Active Complete Oral Capsule Therapy Pack Take by mouth. 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 Never true 09/07/2022 [place] Depression Scale Answer Date Recorded [place] Depression Scale Total 0 01/28/2023 The thought [...] Sign Reading Time Taken Comments Blood Pressure 108/74 02/25/2023 4:00 PM EST Pulse - - Temperature - - Respiratory Rate - - Oxygen Saturation - - Inhaled Oxygen Concentration - - Weight 93.9 kg (207 lb) 02/25/2023 4:00 PM EST Height 165.1 cm (5' 5") 02/25/2023 4:00 PM EST Body Mass Index 34.45 02/25/2023 4:00 PM EST documented in this encounter Progress Notes * Jasmin Montiel, YONG - 02/25/2023 4:20 PM EST Anabell Burns is a 28 year old female here for her routine OB appointment at 32w4d Her Estimated Date of Delivery: 04/18/23 REVIEW OF SYSTEMS: She affirms movement. Denies vaginal bleeding, LOF, contractions, headaches, vision changes, and RUQ pain. Vomited one week ago but no since then. Reports that she feels a "beating" sensation in her lower abdomen. Wondering if baby is sucking her thumb or hiccupping. This sensation is not painful or bothersome, only happens about once daily, and lasts 3-5 minutes. PHYSICAL EXAM: Filed Vitals: 02/25/23 1600 BP: 108/74 Weight: 93.9 kg (207 lb) Height: 1.651 m (5' 5") +FHT 140-150 bpm Fundal height: 32cm ASSESSMENT/PLAN: (O09.899, Z28.39) Rubella non-immune status, antepartum (E66.9) Class 1 obesity (Z34.93) Normal in third trimester (primary encounter diagnosis) Plan: - recommended RSV vaccine and provided vaccine handout from CDC; discussed risk of labor - labor precautions and kick counts reviewed - RTO in 2 weeks Jasmin Montiel CNM * Yajaira Tirado LPN - 02/25/2023 4:11 PM EST 32w4d Denies concerns. Given RSV info. documented in this encounter Plan of Treatment Upcoming Encounters Date Type Department Care Team (Late st Contact Info) Description 03/11/2023 4:30 PM EST Office Visit Gynecology/Obstetrics [facility] [address] [place] [address] Mis Quevedo PA-C [address] [place] [address] 03/25/2023 4:30 PM EST Office Visit Gynecology/Obstetrics [facility] [address] [place] [address] Mis Quevedo PA-C [address] [place] [address] 04/01/2023 4:30 PM EST Office Visit Gynecology/Obstetrics [facility] [address] [place] [address] Mis Quevedo PA-C [address] [place] [address] 04/05/2023 3:00 PM EST Office Visit Gynecology/Obstetrics [facility] [address] [place] [address] Clinton Galo MD [address] [place] [address] 04/13/2023 3:15 PM EST Office Visit Gynecology/Obstetrics [facility] [address] [place] [address] Tameka Odom CRNP [address] [place] [address] 04/18/2023 7:45 AM EST Office Visit Gynecology/Obstetrics [facility] [address] [place] [address] Mis Quevedo PA-C [address] [place] [address] Health Maintenance Due Date Last Done Comments [...] Diagnoses Diagnosis Normal in third trimester- Primary Rubella non-immune status, antepartum Other specified complication, antepartum Class 1 obesity documented in this encounter Care Teams Sheet Metal Production Worker Relationship Specialty Start Date End Date James Carrasco MD [address] [place] [address] [place] [address] PCP - General 04/04/00 documented as of this encounter
--- OUTSIDE RECORDS SUMMARY | 2023-04-16 22:11 | External Medical Summary | Summary of Care ---
Author Name Unknown Organization [facility] Address [address] [place] [address] Phone [phone] Care Team Providers Care Vp Digital Marketing Social Media And Crm Name Role Phone James Carrasco MD Primary Care Provider Reason for Visit * Reason Onset Date Comments Scheduling 04/01/2023 Encounter Details Date Type Department Care Team (Late st Contact Info) Description 04/01/2023 Telephone Gynecology/Obstetrics [facility] [address] [place] [address] Mis Quevedo PA-C [address] [place] [address] Scheduling Allergies No known active allergiesdocumented as of this encounter (statuses as of 04/04/2023) Medications Medication Sig Dispensed Refills Start Date End Date Status Fexofenadine HCl 180 MG Oral Tablet (Nessa) Take 1 Tablet by mouth daily as needed for Allergies. 30 Tablet 11 07/30/2021 Active Complete Oral Capsule Therapy Pack Take by mouth. 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 Never true 09/07/2022 [place] Depression Scale Answer Date Recorded [place] Depression Scale Total 0 03/25/2023 The thought [...] encounter Miscellaneous Notes * Telephone Encounter - Dai Verduzco OSA - 04/04/2023 3:42 PM EST In OR book and EPIC * Telephone Encounter - Sowmya Woods RN - 04/01/2023 4:40 PM EST Patient scheduled for IOL 04[facility]20/23 at [facility] documented in this encounter Plan of Treatment Upcoming Encounters Date Type Department Care Team (Late st Contact Info) Description 04/05/2023 3:00 PM EST Office Visit Gynecology/Obstetrics [facility] [address] [place] [address] Clinton Galo MD [address] [place] [address] 04/13/2023 3:15 PM EST Office Visit Gynecology/Obstetrics [facility] [address] [place] [address] Tameka Odom CRNP [address] [place] [address] 04/18/2023 7:45 AM EST Office Visit Gynecology/Obstetrics [facility] [address] [place] [address] Mis Quevedo PA-C [address] [place] [address] Health Maintenance Due Date Last Done Comments [...] filedocumented as of this encounter Care Teams Vp Digital Marketing Social Media And Crm Relationship Specialty Start Date End Date James Carrasco MD [address] [place] [address] [place] [phone] PCP - General 04/04/00 documented as of this encounter
--- OUTSIDE RECORDS SUMMARY | 2023-04-16 22:11 | External Medical Summary | Summary of Care ---
Author Name Unknown Organization [facility] Address [address] [place] [address] Phone [phone] Care Team Providers Care Barrel Waterer Name Role Phone James Carrasco MD Primary Care Provider [phone] Reason for Visit * Reason Onset Date Comments Forms Request 02/11/2023 Encounter Details Date Type Department Care Team (Late st Contact Info) Description 02/11/2023 Telephone Gynecology/Obstetrics [facility] [address] [place] [address] Mis Quevedo PA-C [address] [place] [address] Forms Request Allergies No known active allergiesdocumented [...] money to get more. Never true 09/07/2022 [place] Depression Scale Answer Date Recorded [place] Depression Scale Total 0 01/28/2023 The thought [...] Would pt like forms faxed yes to [phone] Does pt need notified when done? no Patient Phone Numbers documented in this encounter Plan of Treatment Upcoming Encounters Date Type Department Care Team (Late st Contact Info) Description 02/25/2023 4:00 PM EST Office Visit Gynecology/Obstetrics [facility] [address] [place] [address] Jasmin Montiel, [address] [address] 03/11/2023 4:30 PM EST Office Visit Gynecology/Obstetrics [facility] [address] [place] [address] Mis Quevedo PA-C [address] [place] [address] 03/25/2023 4:30 PM EST Office Visit Gynecology/Obstetrics [facility] [address] [place] [address] Mis Quevedo PA-C [address] [place] [address] 04/01/2023 4:30 PM EST Office Visit Gynecology/Obstetrics [facility] [address] [place] [address] Mis Quevedo PA-C [address] [place] [address] 04/05/2023 3:00 PM EST Office Visit Gynecology/Obstetrics [facility] [address] [place] [address] Clinton Galo MD [address] [place] [address] 04/13/2023 3:15 PM EST Office Visit Gynecology/Obstetrics [facility] [address] [place] [address] Tameka Odom CRNP [address] [place] [address] 04/18/2023 7:45 AM EST Office Visit Gynecology/Obstetrics [facility] [address] [place] [address] Mis Quevedo PA-C [address] [place] [address] Health Maintenance Due Date Last Done Comments [...] filedocumented as of this encounter Care Teams Barrel Waterer Relationship Specialty Start Date End Date James Carrasco MD [address] [place] [address] [place] [address] PCP - General 04/04/00 documented as of this encounter
--- OUTSIDE RECORDS SUMMARY | 2023-04-16 22:11 | External Medical Summary | Summary of Care ---
Author Name Unknown Organization [facility] Address [address] [place] [address] Phone [phone] Care Team Providers Care Commercial Lending Vice President Name Role Phone James Carrasco MD Primary Care Provider Reason for Visit * Reason Comments Outpatient Testing Encounter Details Date Type Department Care Team (Late st Contact Info) Description 01/28/2023 7:20 AM EST Laboratory Laboratory, [facility] [address] [place] [phone] [facility] [address] [place] [address] Normal in second trimester; Obesity in , antepartum; Rubella non-immune status, [...] mRNA, LNP-s, No Pre serve, 2-Dose Series ([employer]) 02/24/2021,01/20/2021 COVID-19, LNP-s, No Preserve , Mariano-sucrose, Ages 12+ ([employer]) 09/15/2021 H1N1 2009 Influenza, IM 12/22/2008 HPV [...] money to get more. Never true 09/07/2022 [place] Depression Scale Answer Date Recorded [place] Depression Scale Total 0 01/28/2023 The thought [...] on file documented as of this encounter Plan of Treatment Upcoming Encounters Date Type Department Care Team (Late st Contact Info) Description 02/11/2023 9:00 AM EST Office Visit Gynecology/Obstetrics [facility] [address] [place] [address] Mis Quevedo PA-C [address] [place] [address] 02/25/2023 4:00 PM EST Office Visit Gynecology/Obstetrics [facility] [address] [place] [address] Jasmin Montiel, [facility] [address] [place], [place] [address] 03/11/2023 4:30 PM EST Office Visit Gynecology/Obstetrics [facility] [address] [place] [address] Mis Quevedo PA-C [address] [place] [address] 03/25/2023 4:30 PM EST Office Visit Gynecology/Obstetrics [facility] [address] [place] [address] Mis Quevedo PA-C [address] [place] [address] 04/01/2023 4:30 PM EST Office Visit Gynecology/Obstetrics [facility] [address] [place] [address] Mis Quevedo PA-C [address] [place] [address] 04/05/2023 3:00 PM EST Office Visit Gynecology/Obstetrics [facility] [address] [place] [address] Clinton Galo MD [address] [place] [address] 04/13/2023 3:15 PM EST Office Visit Gynecology/Obstetrics [facility] [address] [place] [address] Tameka Odom CRNP [address] [place] [address] 04/18/2023 7:45 AM EST Office Visit Gynecology/Obstetrics [facility] [address] [place] [address] Mis Quevedo PA-C [address] [place] [address] Pending Results Name Type Priority Associated Diagnoses Date /Time 50-G GESTATIONAL GLUCOSE, 1 HOUR Lab Routine Normal in second trimester Obesity in , antepartum Rubella non-immune status, antepartum 01/28/2023 8:35 AM EST SYPHILIS ANTIBODY SCREEN WITH REFLEX TO RPR Lab Routine Normal in second trimester Obesity in , antepartum Rubella non-immune status, antepartum 01/28/2023 8:35 AM EST CBC WITH WBC DIFFERENTIAL AND ANEMIA REFLEX WORKUP Lab Routine Normal in second trimester Obesity in , antepartum Rubella non-immune status, antepartum 01/28/2023 8:35 AM EST SYPHILIS ANTIBODY SCREEN Lab Routine Normal in second trimester Obesity in , antepartum Rubella non-immune status, antepartum 01/28/2023 8:35 AM EST ANEMIA CBC Lab Routine Normal in second trimester Obesity in , antepartum Rubella non-immune status, antepartum 01/28/2023 8:35 AM EST DIFFERENTIAL, AUTOMATED Lab Routine Normal in second trimester Obesity in , antepartum Rubella non-immune status, antepartum 01/28/2023 8:35 AM EST ANEMIA REFLEX CHEMISTRY HOLD Lab Routine Normal in second trimester Obesity in , antepartum Rubella non-immune status, antepartum 01/28/2023 8:35 AM EST Health Maintenance Due Date Last Done Comments [...] this encounter Visit Diagnoses Diagnosis Normal in second trimester Obesity in , antepartum Obesity complicating , childbirth, or the puerperium, antepartum condition or complication Rubella non-immune status, antepartum Other specified complication, antepartum documented in this encounter Care Teams Commercial Lending Vice President Relationship Specialty Start Date End Date James Carrasco MD [address] [place] [address] [place] [phone] PCP - General 04/04/00 documented as of this encounter
--- OUTSIDE RECORDS SUMMARY | 2023-04-16 22:11 | External Medical Summary ---
Author Name Unknown Address Unknown Organization K01:[facility] [address] [place] [address] Laboratory Report Ordering Provider Test Date Status DEMOND EMANUEL 01/28/2023 08:35:36 Final Observation Date Value Abnormality Reference (Units ) Status Ferritin 01/28/2023 08:35:36 10 Below low normal 13- 150 (ng/mL) Final Performing Location [facility] [address] [place] [address]
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
--- OUTSIDE RECORDS SUMMARY | 2023-04-16 22:12 | External Medical Summary | Summary of Care ---
Author Name Unknown Organization [facility] Address [address] [place] [address] Phone [phone] Care Team Providers Care Envelope Sealing Machine Operator Name Role Phone James Carrasco MD Primary Care Provider Encounter Details Date Type Department Care Team (Late st Contact Info) Description 12/27/2022 Telephone Gynecology/Obstetrics [address] [address] Mandy Oleary MD [address] [place] [address] Allergies No known active allergiesdocumented [...] to get more. Never true 09/07/2022 [place] Depression Scale Answer Date Recorded [place] Depression Scale Total 1 09/07/2022 The thought [...] 12/31/2022 9:15 AM EST Office Visit Gynecology/Obstetrics [facility] [address] [place] [address] Clinton Galo MD [address] [place] [address] 01/28/2023 7:45 AM EST Office Visit Gynecology/Obstetrics [facility] [address] [place] [address] Mis Quevedo PA-C [address] [place] [address] 02/11/2023 9:00 AM EST Office Visit Gynecology/Obstetrics [facility] [address] [place] [address] Mis Quevedo PA-C [address] [place] [address] 02/25/2023 4:00 PM EST Office Visit Gynecology/Obstetrics [facility] [address] [place] [address] Jasmin Montiel, [address] [place] [address] 03/11/2023 4:30 PM EST Office Visit Gynecology/Obstetrics [facility] [address] [place] [address] Mis Quevedo PA-C [address] [place] [address] 03/25/2023 4:30 PM EST Office Visit Gynecology/Obstetrics [facility] [address] [place] [address] Mis Quevedo PA-C [address] [place] [address] 04/01/2023 4:30 PM EST Office Visit Gynecology/Obstetrics [facility] [address] [place] [address] Mis Quevedo PA-C [address] [place] [address] 04/05/2023 3:00 PM EST Office Visit Gynecology/Obstetrics [facility] [address] [place] [address] Clinton Galo MD [address] [place] [address] 04/13/2023 3:15 PM EST Office Visit Gynecology/Obstetrics [facility] [address] [place] [address] Tameka Odom CRNP [address] [place] [address] 04/18/2023 7:45 AM EST Office Visit Gynecology/Obstetrics [facility] [address] [place] [address] Mis Quevedo PA-C [address] [place] [address] Health Maintenance Due Date Last Done Comments [...] filedocumented as of this encounter Care Teams Envelope Sealing Machine Operator Relationship Specialty Start Date End Date James Carrasco MD [address] [place] [address] [place] [address] PCP - General 04/04/00 documented as of this encounter
--- OUTSIDE RECORDS SUMMARY | 2023-04-16 22:12 | External Medical Summary | Summary of Care ---
Author Name Unknown Organization [facility] Address [address] [place] [address] Phone [phone] Care Team Providers Care Clerk Travel Reservations Name Role Phone James Carrasco MD Primary Care Provider [phone] Reason for Visit * Reason Comments Return Visit Encounter Details Date Type Department Care Team Description 12/03/2022 Office Visit Gynecology/Obstetrics [facility] [address] [place] [address] Tameka Odom CRNP [address] [place] [address] Normal in second trimester*; Obesity in , antepartum; Rubella non-immune status, antepartum Allergies No known active allergiesdocumented as of this encounter (statuses as of 12/03/2022) Medications Medication Sig Dispensed Refills Start Date End Date Status Fexofenadine HCl 180 MG Oral Tablet (Nessa) Take 1 Tablet by mouth daily as needed for Allergies. 30 Tablet 11 07/30/2021 Active Complete Oral Capsule Therapy Pack Take by mouth. 0 Active documented as of this encounter (statuses as of 12/03/2022) Active Problems Problem Noted Date Rubella non-immune status, antepartum Normal 09/07/2022 Obesity in , antepartum 023 Overview: Class 1; normal early GTT BMI 32.0-32.9,adult 08/26/2021 Overview: 193 Anxiety 10/15/2019 Overview: Buspar prn, stopped ADVANCE DIRECTIVE INFORMATION 03/07/2006 Overview: Not applicable (under age of 18) Estimated Date of Delivery Comme nts Yes 04/18/2023 Based on last me nstrual period of 07/12/2022 documented as of this encounter (statuses as of 12/03/2022) Resolved Problems Problem Noted Date Resolved Date Rubella non-immune status, antepartum 01/21/2020 06/23/2020 , normal first 11/26/2019 06/24/19 21 Obesity in , antepartum 10/15/2019 06/23/2020 Overview: BMI: 33.18 kg/m at NOB 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 Never true 09/07/2022 Within the past 12 months, t he food you bought just didn't last and you didn't have money to get more. Never true 09/07/2022 Estimated Date of Delivery Comme nts Yes 04/18/2023 Based on last me nstrual period of 07/12/2022 Sex Assigned at Date Recorded Female 09/07/2022 9:26 AM E DT Job Start Date Occupation Industry Not on file Not on file Not on file documented as of this encounter Last Filed Vital Signs Vital Sign Reading Time Taken Comments Blood Pressure 120/64 12/03/2022 2:35 PM EDT Pulse - - Temperature - - Respiratory Rate - - Oxygen Saturation - - Inhaled Oxygen Concentration - - Weight 90.3 kg (199 lb) 12/03/2022 2:35 PM EDT Height 165.1 cm (5' 5") 12/03/2022 2:35 PM EDT Body Mass Index 33.12 12/03/2022 2:35 PM EDT documented in this encounter Progress Notes * PETR Riley - 12/03/2022 2:58 PM EDT 20w4d No concerns. +FM. No contractions, bleeding, or LOF. Anatomy u/s today, formal report pending. +cardiac activity seen. PETR Riley * Beba Whitley LPN - 12/03/2022 2:40 PM EDT 20w4d Pt denies any concerns. documented in this encounter Plan of Treatment Upcoming Encounters Date Type Specialty Care Team Description 12/31/2022 Office Visit Gynecology Obstetrics Tameka Odom CRNP [address] [place] [address] 01/28/2023 Office Visit Gynecology Obstetrics Mis Quevedo PA-C [address] [place] [address] 02/11/2023 Office Visit Gynecology Obstetrics Mis Quevedo PA-C [address] [place] [address] 02/25/2023 Office Visit Gynecology Obstetrics Jasmin Montiel, [address] [address] 03/11/2023 Office Visit Gynecology Obstetrics Mis Quevedo PA-C [address] [place] [address] 03/25/2023 Office Visit Gynecology Obstetrics Mis Quevedo PA-C [address] [place] [address] 04/01/2023 Office Visit Gynecology Obstetrics Mis Quevedo PA-C [address] [place] [address] 04/05/2023 Office Visit Gynecology Obstetrics Clinton Galo MD [address] [place] [address] 04/13/2023 Office Visit Gynecology Obstetrics Tameka Odom CRNP [address] [place] [address] 04/18/2023 Office Visit Gynecology Obstetrics Mis Quevedo PA-López [address] [place] [address] Health Maintenance Due Date Last Done Comments [...] encounter Visit Diagnoses Diagnosis Normal in second trimester- Primary Obesity in , antepartum Obesity complicating , childbirth, or the puerperium, antepartum condition or complication Rubella non-immune status, antepartum Other specified complication, antepartum documented in this encounter Care Teams Clerk Travel Reservations Relationship Specialty Start Date End Date James Carrasco MD [address] [place] [address] [place] [address] PCP - General 04/04/00 documented as of this encounter
--- OUTSIDE RECORDS SUMMARY | 2023-04-16 22:12 | External Medical Summary | Summary of Care ---
Author Name Unknown Organization [facility] Address [address] [place] [address] Phone [phone] Care Team Providers Care Operations Analyst Name Role Phone James Carrasco MD Primary Care Provider [phone] Reason for Visit * Reason Comments Return Visit Encounter Details Date Type Department Care Team Description 11/05/2022 Office Visit Gynecology/Obstetrics [facility] [address] [place] [address] Melyssa Muhammad CRNP [address] [place] [address] Normal in second trimester*; Obesity in , antepartum; Rubella non-immune status, antepartum; Need for influenza vaccination Allergies No known active allergiesdocumented as of this encounter (statuses as of 11/05/2022) Medications Medication Sig Dispensed Refills Start Date End Date Status Fexofenadine HCl 180 MG Oral Tablet (Nessa) Take 1 Tablet by mouth daily as needed for Allergies. 30 Tablet 11 07/30/2021 Active Complete Oral Capsule Therapy Pack Take by mouth. 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 05/22/2018 Acne vulgaris 05/22/2018 documented as of this encounter (statuses as of 11/05/2022) Immunizations Name Administration Dates Next Due COVID-19 mRNA, LNP-s, No Pre serve, 2-Dose Series ([employer]) 02/24/2021,01/20/2021 COVID-19, LNP-s, No Preserve , Mariano-sucrose, Ages 12+ (Pfizer) 09/15/2021 H1N1 2009 Influenza, IM 12/22/2008 HPV Vaccine, 4-Valent 10/03/2006,05/30/2006,03/24 Hep A - Hepatitis A (ped/ado le, 1-18 Yrs) 03/04/2006,08/23/2005 Meningococcal Conjugate Vacc ine (Menactra/Menveo) 09/20/2013,03/18/2008 PPD 09/20/2018,02/22/2017,07/02/2015 Seasonal Influenza, PF, 6 mo ns & Above, IM , (Flulaval) 11/05/2022,01/21/2020,12/19/2018,02/24 Seasonal Influenza, Quadriva lent, No Preserve, [...] Sign Reading Time Taken Comments Blood Pressure 102/66 11/05/2022 11:20 AM EDT Pulse - - Temperature - - Respiratory Rate - - Oxygen Saturation - - Inhaled Oxygen Concentration - - Weight 88.6 kg (195 lb 6.4 oz) 11/05/2022 11:20 AM EDT Height - - Body Mass Index 32.52 10/08/2022 9:36 AM EDT documented in this encounter Progress Notes * PETR Cazares - 11/05/2022 11:29 AM EDT 16w4d Denies vaginal bleeding or cramping. + movement. Declines genetic screening. Flu shot today. Discussed anatomy scan to be completed at next visit. 4 week return PETR Esparza * Elise Negrete LPN - 11/05/2022 11:19 AM EDT 16w4d Denies vaginal bleeding/rom + movement Flu shot today No new concerns documented in this encounter Plan of Treatment Upcoming Encounters Date Type Specialty Care Team Description 12/03/2022 Imaging Radiology 12/03/2022 Office Visit Gynecology Obstetrics Tameka Odom CRNP [address] [place] [address] 12/31/2022 Office Visit Gynecology Obstetrics Tameka Odom CRNP [address] [place] [address] 01/28/2023 Office Visit Gynecology Obstetrics Tameka Odom CRNP [address] [place] [address] Scheduled Orders Name Type Priority Associated Diagnoses Orde r Schedule US PREG SINGLE/1ST GEST, 14 WEEKS OR LATER Medical Imaging Routine Normal in second trimester Expected: 12/05/2022 (Approximate), Expires: 12/06/2023 Health Maintenance Due Date Last Done Comments Depression Screening 05/11/2019 05/10/2018 COVID-19 Vaccine (4 - Pfizer series) 11/10/2021 09/15/2021, 02/24/2021, 01/20/2021 Pap Smear 05/12/2025 05/12/2022, 09/22, 04/29/2017 DTaP,Tdap,and Td Vaccines (9 - Td or Tdap) 03/10/2030 03/10/2020, 02/19/2015, 03/04/2006, Additional history exists Hepatitis B Completed 1995, 01/22, 1995 GARDASIL-HPV IMMUNIZATION SERIES Completed 10/03/2006, 05/30/2006, 04/04/2006 MENINGOCOCCAL (MENACTRA/MENVEO) Completed 09/20/2013, 03/18/2008 Gonorrhea / Chlamydia Screen Discontinued 09/07/2022, 10/15/2019, 09/15/2018, Additional history exists Hepatitis C Screening Completed 09/07/2022 , 09/07/2022, 09/07/2022 Influenza Vaccine (FLU shot) Completed 11/05/2022, 01/21/2020, [...] antepartum Other specified complication, antepartum Need for influenza vaccination Need for prophylactic vaccination and inoculation against influenza documented in this encounter Care Teams Operations Analyst Relationship Specialty Start Date End Date James Carrasco MD [address] [place] [address] [place] [address] PCP - General 04/04/00 documented as of this encounter
--- OUTSIDE RECORDS SUMMARY | 2023-04-16 22:12 | External Medical Summary ---
Author Name Unknown Address Unknown Organization [id number]:[facility] - [address] [facility] [id number] Laboratory Report Ordering Provider Test Date Status DEMOND EMANUEL 01/28/2023 08:35:36 Final Observation Date Value Abnormality Reference (Units ) Status Treponema pallidum Ab [Presence] in Serum by Immunoassay 01/28/2023 08:35:36 Nonreactive Nonreactive Final No serologic evidence of syp hilis. No additional testing clinicially indicated at this time. Consider repeat testing in 2-4 weeks if acute or primary syphilis is suspected. Performing Location [facility] - [address] [facility] [id number]
--- OUTSIDE RECORDS SUMMARY | 2023-04-16 22:12 | External Medical Summary ---
Author Name Unknown Address Unknown Organization [id number]:[facility] - [address] [place] [id number] Laboratory Report Ordering Provider Test Date Status DEMOND EMANUEL 01/28/2023 08:35:36 Final Observation Date Value Abnormality Reference (Units ) Status Iron 01/28/2023 08:35:36 78 33-151 (ug/dL) Final Iron-binding capacity 01/28/2023 08:35:36 460 Above high normal 250-425 (ug/dL) Final Transferrin Sat % 01/28/2023 08:35:36 17 15-55 (%) Final Performing Location [facility] - [address] [place] [id number]
--- OUTSIDE RECORDS SUMMARY | 2023-04-16 22:12 | External Medical Summary | Summary of Care ---
Author Name Unknown Organization [facility] Address [address] [place] [address] Phone [phone] Care Team Providers Care Marketing Communications Coordinator Name Role Phone James Carrasco MD Primary Care Provider [phone] Encounter Details Date Type Department Care Team (Late st Contact Info) Description 12/27/2022 Telephone Gynecology/Obstetrics [address] [address] Mandy Oleary MD [address] [place] [address] Allergies No known active allergiesdocumented [...] Polio Virus Vaccine (Oral) 996,1995,1995,03/18 PPD 09/20/2018,02/22/2017,07/02/2015 SEASONAL INFLUENZA, PF, 6 M [...] money to get more. Never true 09/07/2022 [place] Depression Scale Answer Date Recorded [place] Depression Scale Total 1 09/07/2022 The thought [...] encounter Miscellaneous Notes * Telephone Encounter - Manuela Dacosta RN - 12/27/2022 10:38 AM EST Pt called back in. She started with pain in her left side. Rib area. She can feel the pain when shebends or takes a deep breath. She is also having back pain on her left lower back, right above her buttock. She is unsure if it was just the jolt of pushing on her brakes. 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 Pt can be reached at [phone]. * Telephone Encounter - Mandy Oleary MD [...] time. Precautions reviewed with patient, reassurance given Marita Oleary MD PhD * Telephone Encounter - Manuela Dacosta [...] Upcoming Encounters Date Type Department Care Team (Sallie Contact Info) Description 12/31/2022 9:15 AM EST Office Visit Gynecology/Obstetrics [facility] [address] [place] [address] Clinton Galo MD [address] [place] [address] 01/28/2023 7:45 AM EST Office Visit Gynecology/Obstetrics [facility] [address] [place] [address] Mis Quevedo PA-C [address] [place] [address] 02/11/2023 9:00 AM EST Office Visit Gynecology/Obstetrics [facility] [address] [place] [address] Msi Quevedo PA-C [address] [place] [address] 02/25/2023 4:00 PM EST Office Visit Gynecology/Obstetrics [facility] [address] [place] [address] Jasmin Montiel, [address] [address] 03/11/2023 4:30 PM EST Office Visit Gynecology/Obstetrics [facility] [address] [place] [address] Mis Quevedo PA-C [address] [place] [address] 03/25/2023 4:30 PM EST Office Visit Gynecology/Obstetrics [facility] [address] [place] [address] Mis Quevedo PA-C [address] [place] [address] 04/01/2023 4:30 PM EST Office Visit Gynecology/Obstetrics [facility] [address] [place] [address] Mis Quevedo PA-C [address] [place] [address] 04/05/2023 3:00 PM EST Office Visit Gynecology/Obstetrics [facility] [address] [place] [address] Clinton Galo MD [address] [place] [address] 04/13/2023 3:15 PM EST Office Visit Gynecology/Obstetrics [facility] [address] [place] [address] Tameka Odom CRNP [address] [place] [address] 04/18/2023 7:45 AM EST Office Visit Gynecology/Obstetrics [facility] [address] [place] [address] Mis Quevedo PA-C [address] [place] [address] Health Maintenance Due Date Last Done Comments [...] filedocumented as of this encounter Care Teams Marketing Communications Coordinator Relationship Specialty Start Date End Date James Carrasco MD [address] [place] [address] [place] [phone] PCP - General 04/04/00 documented as of this encounter
--- OUTSIDE RECORDS SUMMARY | 2023-04-16 22:12 | External Medical Summary | Summary of Care ---
Author Name Unknown Organization [facility] Address [address] [place] [address] Phone [phone] Care Team Providers Care Title I Assistant Name Role Phone James Carrasco MD Primary Care Provider Reason for Visit * Reason Comments Return Visit Encounter Details Date Type Department Care Team (Late st Contact Info) Description 12/31/2022 9:15 AM EST Office Visit Gynecology/Obstetric s [facility] [address] [place] [address] Clinton Galo MD [address] [place] [address] Normal in second trimester*; Obesity in , antepartum; Rubella non-immune status, antepartum Allergies No known active allergiesdocumented as of this encounter (statuses as of 12/31/2022) Medications Medication Sig Dispensed Refills Start Date End Date Status Fexofenadine HCl 180 MG Oral Tablet (Nessa) Take 1 Tablet by mouth daily as needed for Allergies. 30 Tablet 11 07/30/2021 Active Complete Oral Capsule Therapy Pack Take by mouth. 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 Never true 09/07/2022 [place] Depression Scale Answer Date Recorded [place] Depression Scale Total 1 09/07/2022 The thought [...] Sign Reading Time Taken Comments Blood Pressure 116/72 12/31/2022 9:12 AM EST Pulse - - Temperature - - Respiratory Rate - - Oxygen Saturation - - Inhaled Oxygen Concentration - - Weight 90 kg (198 lb 6.4 oz) 12/31/2022 9:12 AM EST Height 165.1 cm (5' 5") 12/31/2022 9:12 AM EST Body Mass Index 33.02 12/31/2022 9:12 AM EST documented in this encounter Progress Notes * Clinton Galo MD - 12/31/2022 9:31 AM EST Pt doing well No complaints RTC 4 weeks documented in this encounter Nursing Notes * Yajaira Tirado LPN - 12/31/2022 9:21 AM EST 24w4d Denies concerns. 28 week labs at next visit. documented in this encounter Plan of Treatment Upcoming Encounters Date Type Department Care Team (Late st Contact Info) Description 01/28/2023 7:20 AM EST Laboratory Laboratory, [facility] [address] [place] [address] [facility] [address] [place] [address] 01/28/2023 7:45 AM EST Office Visit Gynecology/Obstetrics [facility] [address] [place] [address] Mis Quevedo PA-C [address] [place] [address] 02/11/2023 9:00 AM EST Office Visit Gynecology/Obstetrics [facility] [address] [place] [address] Mis Quevedo PA-C [address] [place] [address] 02/25/2023 4:00 PM EST Office Visit Gynecology/Obstetrics [facility] [address] [place] [address] Jasmin Montiel, [facility] [address] [place] [address] 03/11/2023 4:30 PM EST Office Visit Gynecology/Obstetrics [facility] [address] [place] [address] Mis Quevedo PA-C [address] [place] [address] 03/25/2023 4:30 PM EST Office Visit Gynecology/Obstetrics [facility] [address] [place] [address] Mis Quevedo PA-C [address] [place] [address] 04/01/2023 4:30 PM EST Office Visit Gynecology/Obstetrics [facility] [address] [place] [address] Mis Quevedo PA-C [address] [place] [address] 04/05/2023 3:00 PM EST Office Visit Gynecology/Obstetrics [facility] [address] [place] [address] Clinton Galo MD [address] [place] [address] 04/13/2023 3:15 PM EST Office Visit Gynecology/Obstetrics [facility] [address] [place] [address] Tameka Odom CRNP [address] [place] [address] 04/18/2023 7:45 AM EST Office Visit Gynecology/Obstetrics [facility] [address] [place] [address] Mis Quevedo PA-C [address] [place] [address] Scheduled Orders Name Type Priority Associated Diagnoses Orde r Schedule 50-G GESTATIONAL GLUCOSE, 1 HOUR Lab Routine Normal in second trimester Obesity in , antepartum Rubella non-immune status, antepartum Expected: 01/30/2023 (Approximate), Expires: 01/01/2024 SYPHILIS ANTIBODY SCREEN WITH REFLEX TO RPR Lab Routine Normal in second trimester Obesity in , antepartum Rubella non-immune status, antepartum Expected: 01/30/2023 (Approximate), Expires: 01/01/2024 CBC WITH WBC DIFFERENTIAL AND ANEMIA REFLEX WORKUP Lab Routine Normal in second trimester Obesity in , antepartum Rubella non-immune status, antepartum Expected: 01/30/2023 (Approximate), Expires: 01/01/2024 Health Maintenance Due Date Last Done Comments [...] antepartum documented in this encounter Care Teams Title I Assistant Relationship Specialty Start Date End Date James Carrasco MD [address] [place] [address] [place] [phone] PCP - General 04/04/00 documented as of this encounter
--- OUTSIDE RECORDS SUMMARY | 2023-04-16 22:12 | External Medical Summary | Summary of Care ---
Author Name Unknown Organization [facility] Address [address] [place] [address] Phone [phone] Care Team Providers Care Public Address Technician Name Role Phone James Carrasco MD Primary Care Provider Encounter Details Date Type Department Care Team Description 09/03/2022 [facility] [address] [place] [address] Tameka Odom CRNP [address] [place] [facility] [place] [address] Allergies No known active allergiesdocumented as of [...] 4-Valent 10/03/2006,05/30/2006,03/24 Hep A - Hepatitis A (ped/adole, 1-18 Yrs) 2006,08/23/2005 Meningococcal Conjugate Vacc ine (Menactra/Menveo) 09/20/2013,03/18/2008 PPD 09/20/2018,02/22/2017,07/02/2015 SEASONAL INFLUENZA, PF, 6 M & Above, IM , (FLULAVAL or FLUZONE) 01/21/2020,12/19/2018,02/24/2017 Seasonal Influenza, Quadriva lent, No Preserve, IM [...] encounter Miscellaneous Notes * Telephone Encounter - Maureen Jarvis LPN - 09/03/2022 12:55 PM EDT Called pt lm to return call for nurse intake for NOB documented in this encounter Plan of Treatment Upcoming Encounters Date Type Specialty Care Team Description 12/31/2022 Office Visit Gynecology Obstetrics Tameka Odom CRNP [address] [place] [address] 01/28/2023 Office Visit Gynecology Obstetrics Mis Quevedo PA-C [address] [place] [address] 02/11/2023 Office Visit Gynecology Obstetrics Mis Quevedo PA-C [address] [place] [address] 02/25/2023 Office Visit Gynecology Obstetrics Jasmin Montiel[facility] [address] [facility] [place] [address] 03/11/2023 Office Visit Gynecology Obstetrics Mis Quevedo PA-C [address] [place] [address] 03/25/2023 Office Visit Gynecology Obstetrics Mis Quevedo PA-C [address] [place] [address] 04/01/2023 Office Visit Gynecology Obstetrics Mis Quevedo PA-C [address] [place] [address] 04/05/2023 Office Visit Gynecology Obstetrics Clinton Galo MD [address] [place] [address] 04/13/2023 Office Visit Gynecology Obstetrics Tameka Odom CRNP [address] [place] [address] 04/18/2023 Office Visit Gynecology Obstetrics Mis Quevedo PA-C [address] [place] [address] Health Maintenance Due Date Last Done Comments [...] filedocumented as of this encounter Care Teams Public Address Technician Relationship Specialty Start Date End Date James Carrasco MD [address] [place] [address] [place] [address] PCP - General 04/04/00 documented as of this encounter
--- OUTSIDE RECORDS SUMMARY | 2023-04-16 22:12 | External Medical Summary | Summary of Care ---
Author Name Unknown Organization [facility] Address [address] [place] [address] Phone [phone] Care Team Providers Care Music Department Chair Name Role Phone James Carrasco MD Primary Care Provider Encounter Details Date Type Department Care Team (Late st Contact Info) Description 12/27/2022 Telephone Gynecology/Obstetrics [address] [address] Madny Oleary MD [address] [place] [address] Allergies No known active allergiesdocumented [...] money to get more. Never true 09/07/2022 [place] Depression Scale Answer Date Recorded [place] Depression Scale Total 1 09/07/2022 The thought [...] Encounter - Manuela Dacosta RN - 12/27/2022 12:10 PM EST Pt is aware. * Telephone Encounter - Manuela Dacosta RN [...] at work. Pt can be reached at [phone]. * Telephone Encounter - Mandy Oleary MD [...] 12/31/2022 9:15 AM EST Office Visit Gynecology/Obstetrics [facility] [address] [place] [address] Clinton Galo MD [address] [place] [address] 01/28/2023 7:45 AM EST Office Visit Gynecology/Obstetrics [facility] [address] [place] [address] Mis Quevedo PA-C [address] [place] [address] 02/11/2023 9:00 AM EST Office Visit Gynecology/Obstetrics [facility] [address] [place] [address] Mis Quevedo PA-C [address] [place] [address] 02/25/2023 4:00 PM EST Office Visit Gynecology/Obstetrics [facility] [address] [place] [address] Jasmin Montiel, [address] [address] 03/11/2023 4:30 PM EST Office Visit Gynecology/Obstetrics [facility] [address] [place] [address] Mis Quevedo PA-C [address] [place] [address] 03/25/2023 4:30 PM EST Office Visit Gynecology/Obstetrics [facility] [address] [place] [address] Mis Quevedo PA-C [address] [place] [address] 04/01/2023 4:30 PM EST Office Visit Gynecology/Obstetrics [facility] [address] [place] [address] Mis Quevedo PA-C [address] [place] [address] 04/05/2023 3:00 PM EST Office Visit Gynecology/Obstetrics [facility] [address] [place] [address] Clinton Galo MD [address] [place] [address] 04/13/2023 3:15 PM EST Office Visit Gynecology/Obstetrics [facility] [address] [place] [address] Tameka Odom CRNP [address] [place] [address] 04/18/2023 7:45 AM EST Office Visit Gynecology/Obstetrics [facility] [address] [place] [address] Mis Quevedo PA-C [address] [place] [address] Health Maintenance Due Date Last Done Comments [...] filedocumented as of this encounter Care Teams Music Department Chair Relationship Specialty Start Date End Date James Carrasco MD [address] [place] [address] [place] [address] PCP - General 04/04/00 documented as of this encounter
[2023-04-16] MEDS ORDERED: LIDOCAINE 1% LOCAL 20 ML VIAL INFIL PRN (22:26)
[2023-04-16] MEDS: LACTATED RINGER'S 1,000 ML IV PRN (22:30)
--- NOTE | 2023-04-16 22:40 | History & Physical Report ---
Date of Service April 16, 2023 History of Present Illness Chief Complaint: onset of labor Primary Care Provider: James Carrasco MD 28 F P1001 at 40.4 weeks with onset of labor. GBS is negative. Allergies Allergy/AdvReac Type Severity Reaction Status Date / Time No Known Allergies Allergy Unverified 06/03/20 18:59 Home Medications Medication Instructions Recorded Confirmed Type vitamin-ferrous sulfate 1 tab PO DAILY 06/03/20 06/03/20 History 27 mg iron-folic acid 0.8 mg tablet ibuprofen 600 mg tablet 600 mg PO Q4H PRN fever or pain 06/05/20 Rx #30 tabs Patient History Medical History Anxiety Surgical History No pertinent past surgical history Social History Smoking Status: Never smoker Second Hand Exposure: No; Hx Alcohol Use: No Hx Substance Use: No Preferred Language: Cymraes Communication Ability: Effective Paramedic Required: No Beliefs That Will Affect Care: None marital status: Current Living Situation: Spouse Feels Safe at Home: Yes Assistive Devices: None OB History x1 PARTS CLEANER History neg Review of Systems All systems reviewed & are unremarkable except as noted in HPI & below Physical Exam Constitutional: WD/WN, vitals as above Respiratory: normal respiratory effort, lungs clear to auscultation Cardiovascular: RRR, no murmur, no edema Gastrointestinal (Abdomen): Inspection/Auscultation: abdomen normal to inspection Musculoskeletal: Extremities: extremities normal to inspection Skin: no rashes, warm and dry Neurologic: patellar DTR's 2+ bilat, sensation intact Psychiatric: A+Ox3, euthymic affect Genitourinary: Manual OB Exam: + cervical dilation 7 cm, + cervical effacement 100% and + station 0 OB Exam Monitor Tracing: + external FHT monitor used, + external uterine monitor used, + category I and + normal FHT variability Results & Data Vital Signs (Past 12 Hours) Vital Signs Pulse BP 04/16/23 22:26 86 141/87 H
[2023-04-16] MEDS: OXYTOCIN 30 UNITS/NSS 30 UNITS/500 ML BAG IV PRN (23:13)
[2023-04-16 23:20] LABS: Hematocrit (blood only) 37.6 % (37.0-47.0); Hemoglobin 12.1 g/dl (12.0-16.0); Mean Corpuscular Hemoglobin 24.1 pg (25.0-34.0); Mean Corpuscular Hgb Conc 32.2 g/dL (32.0-36.0); Mean Corpuscular Volume 74.9 fL (80.0-100.0); Platelet Count 194 K/uL (130-400); RDW Standard Deviation 42.9 fL (36.4-46.3); Red Blood Count 5.02 M/uL (4.20-5.40); White Blood Count 13.28 K/ul (4.8-10.8)
[2023-04-16] MEDS: SODIUM CHLORIDE 0.9% PF INJ 10 ML VIAL ONE (23:29)
[2023-04-16] MEDS: ePHEDrine sulfate 50 MG/ML AMP ONE (23:30)
[2023-04-16] MEDS: fentANYL 2 MCG/ML BUPIVacaine 0.125%-NSS 100ML BAG ONE (23:30)
[2023-04-16] MEDS: LIDOCAINE 2%/EPINEPHRINE 1:200,000 20 ML PF ONE (23:30)
[2023-04-16] MEDS: fentaNYL citrate PF 100 MCG/2 ML VIAL ONE (23:30)
[2023-04-17] MEDS: BUPIVACAINE 0.25% PF 30 ML VIAL ONE
[2023-04-17] MEDS ORDERED: ACETAMINOPHEN 325 MG TAB PO PRN (00:22)
[2023-04-17] MEDS ORDERED: IBUPROFEN 600 MG TAB PO PRN (00:22)
[2023-04-17] MEDS ORDERED: BENZOCAINE 20% SPRY 85 APPLN/85 GM CAN EXT PRN (00:22)
[2023-04-17] MEDS ORDERED: HYDROCORTISONE ACETATE 25 MG SUPP PR PRN (00:22)
[2023-04-17] MEDS ORDERED: OXYTOCIN 30 UNITS/NSS 30 UNITS/500 ML BAG IV PRN (00:22)
[2023-04-17] MEDS: IBUPROFEN 600 MG TAB PO ONE (00:37)
[2023-04-17] MEDS: DIPHTHER/TETAN/PERTUS Vaccine (Tdap, Adol/Adult) 0.5mL IM ONE (00:59)
[2023-04-17] MEDS: DOCUSATE SODIUM 100 MG CAP PO SCH (07:11)
[2023-04-17] MEDS: PRENATAL VITAMIN 1 TAB PO SCH (07:11)
[2023-04-17] MEDS: FERROUS SULFATE 325 MG TAB PO SCH (07:11)
[2023-04-17] MEDS ORDERED: MEASLES, MUMPS & RUBELLA VIRUS VACCINE (MMR) VIAL ONE (07:23)
[2023-04-17] MEDS: MEASLES, MUMPS & RUBELLA VIRUS VACCINE (MMR) VIAL SQ ONE (07:28)
[2023-04-17] MEDS ORDERED: NON-FORMULARY MEDICATION (Prenatal Vit-Ferrous Sulfat-Fa 27 mg iron- 0.8 mg Tablet) PO SCH (09:00)
--- NOTE | 2023-04-17 09:43 | Obstetrical Progress Note ---
Date of Service April 17, 2023 Assessment & Plan (1) Normal course: pt doing well no complaints continue care as planned Results & Data Vital Signs (Past 12 Hours) Vital Signs Temp Pulse Pulse Pulse Resp BP BP 04/17/23 07:15 04/17/23 07:15 36.5 C 94 H 18 110/77 04/17/23 05:01 36.5 C 82 18 111/77 04/17/23 01:42 36.6 C 76 18 109/69 04/17/23 01:25 86 129/66 04/17/23 01:16 75 124/64 04/17/23 01:01 123/65 04/17/23 00:46 82 128/68 04/17/23 00:31 83 129/72 04/17/23 00:16 91 H 123/82 04/17/23 00:01 95 H 133/77 04/16/23 23:46 80 131/75 04/16/23 23:31 85 130/87 04/16/23 23:15 74 141/80 H 04/16/23 22:34 36.9 C 14 04/16/23 22:26 86 141/87 H Pulse Ox O2 Del Method 04/17/23 07:15 Room Air 04/17/23 07:15 Room Air 04/17/23 05:01 98 Room Air 04/17/23 01:42 98 Room Air 04/17/23 01:25 04/17/23 01:16 04/17/23 01:01 04/17/23 00:46 04/17/23 00:31 04/17/23 00:16 04/17/23 00:01 04/16/23 23:46 04/16/23 23:31 04/16/23 23:15 04/16/23 22:34 04/16/23 22:26
[2023-04-17] MEDS: IBUPROFEN 600 MG TAB PO PRN (12:37)
[2023-04-18 07:19] LABS: Hematocrit (blood only) 36.7 % (37.0-47.0); Hemoglobin 11.8 g/dl (12.0-16.0); Mean Corpuscular Hemoglobin 24.5 pg (25.0-34.0); Mean Corpuscular Hgb Conc 32.2 g/dL (32.0-36.0); Mean Corpuscular Volume 76.3 fL (80.0-100.0); Mean Platelet Volume 11.3 fL (9.4-12.4); Platelet Count 161 K/uL (130-400); RDW Coefficient of Variation 16.5 % (11.5-14.5); RDW Standard Deviation 44.3 fL (36.4-46.3); Red Blood Count 4.81 M/uL (4.20-5.40); White Blood Count 9.31 K/ul (4.8-10.8)
--- NOTE | 2023-04-18 10:03 | Obstetrical Progress Note ---
Date of Service April 18, 2023 Subjective Ambulation: ambulating normally Voiding: no voiding problems Passing Gas:: Yes Diet Tolerance:: regular diet Lochia:: Small Feeding Type:: breast feeding Current Pain Level(1-10): 0 doing well plans for d/c today Physical Exam Constitutional WD/WN, vitals as above Musculoskeletal Extremities: extremities normal to inspection Skin no rashes, warm and dry Neurologic patellar DTR's 2+ bilat, sensation intact Psychiatric A+Ox3, euthymic affect Results & Data Vital Signs (Past 12 Hours) Vital Signs Temp Pulse Resp BP Pulse Ox O2 Del Method 04/18/23 00:00 36.6 C 74 16 112/80 97 Room Air Laboratory Results 04/16/23 04/18/23 22:51 06:59 WBC 13.28 H 9.31 RBC 5.02 4.81 Hgb 12.1 11.8 L Hct 37.6 36.7 L MCV 74.9 L 76.3 L MCH 24.1 L 24.5 L MCHC 32.2 32.2 RDW Std Deviation 42.9 44.3 RDW Coeff of Meghann 16.0 H 16.5 H Plt Count 194 161 MPV 11.0 11.3
[2023-04-18] MEDS ORDERED: bisacodyL 5 MG TABEC PO SCH (20:00)
[2023-04-19] MEDS ORDERED: bisacodyL 10 MG SUPP PR PRN
--- NOTE | 2023-04-25 11:41 | Delivery Summary ---
Vaginal Delivery Summary Date of Service April 25, 2023 Vaginal Delivery Summary live female LIBIA over intact perineum with delayed cord clamping and Apgars of 8/9 with pending. Cord blood obtained followed by spontaneous delivery of intact placenta. No tears. EBL 100 ml. Final sponge and instrument count are correct. Mom and baby stable.
== END 2023-04-18 11:00 | disposition home or self-care (01) | DRG 807 ==
LOC: OPB 22:04 → 4S1 22:24 → 4E2 04-17 02:00